=== PATIENT | male | born 1930 | race Two or more races ===

== ENCOUNTER 2017-09-26 10:50 | Inpatient (IN) | payer MEDICARE, OTHER ==
[~2017-09-26] VITALS: Ht 160 cm; Wt 72.6 kg
[~2017-09-26 10:50] MED LIST: CARVEDILOL3.125 MG ORAL; DULCOLAX10 MG RC; FOLIC ACID1 MG ORAL; LIPITOR10 MG ORAL; MIRTAZAPINE15 MG ORAL; PEPCID20 MG ORAL; PLAVIX75 MG ORAL; PREDNISOLO15 MG/5 M1 ORAL; TAMSULOSIN HCL0.4 MG ORAL; TOVIAZ4 MG PO; TRAMADOL HCL50 MG ORAL
[2017-09-26] MEDS ORDERED: ARICEPT5 MG ORAL (10:59)
[2017-09-26] MEDS ORDERED: FOSAMAX70 MG ORAL (10:59)
[2017-09-26] MEDS ORDERED: ATORVASTATIN CA10 MG ORAL (10:59)
[2017-09-26] MEDS ORDERED: MAGNESIUM OXID500 M2 PO (10:59)
[2017-09-26] MEDS ORDERED: MULTIVITAMINS1 EAC8 ORAL (11:01)
[2017-09-26] MEDS ORDERED: LATANOPROST2.5 ML BOTH EYES (11:01)
[2017-09-26] MEDS ORDERED: TOVIAZ4 MG PO (11:01)
[2017-09-26] MEDS ORDERED: MILK OF MA400 MG/51 ORAL (11:01)
[2017-09-26] MEDS ORDERED: PREDNISONE2.5 MG ORAL (11:03)
[2017-09-26] MEDS ORDERED: Sodium Chloride 500ML 500 ML IV ONE (11:09)
[2017-09-26 11:15] VITALS: BP 97/68
[2017-09-26] MEDS ORDERED: Ipratropium 0.02% Inh Soln 2.5ml UD HHN ONE (11:15)
[2017-09-26] MEDS ORDERED: Albuterol ud Inhalation HHN ONE (11:15)
[2017-09-26] MEDS ORDERED: Solu-MEDROL 125mg Inj IVP ONE (11:15)
[2017-09-26 12:08] LABS: BASOPHILS % (AUTO) 0.3 % (0.0-2.0); EOSINOPHILS % (AUTO) 0.2 % (0.0-3.0); LYMPHOCYTES % (AUTO) 9.9 % (20.0-45.0); MEAN CORPUSCULAR HEMOGLOBIN 27.1 PG (27.0-31.0); MEAN CORPUSCULAR HGB CONC 31.6 G/DL (32.0-36.0); MEAN CORPUSCULAR VOLUME 86 FL (80-99); MONOCYTES % (AUTO) 6.9 % (1.0-10.0); NEUTROPHILS % (AUTO) 82.7 % (45.0-75.0); PLATELET COUNT 247 K/UL (150-450); RED BLOOD COUNT 5.73 M/UL (4.70-6.10); RED CELL DISTRIBUTION WIDTH 14.4 % (11.6-14.8); WHITE BLOOD COUNT 15.9 K/UL (4.8-10.8)
[2017-09-26 12:09] LABS: APPEARANCE,URINE TURBID; KETONES,URINE NEGATIVE (NEGATIVE); LEUKOCYTE ESTERASE ,URINE 1+ (NEGATIVE); NITRITE,URINE NEGATIVE (NEGATIVE); PH,URINE 5 (4.5-8.0); PROTEIN,URINE 3+ (NEGATIVE); UROBILINOGEN,URINE NORMAL MG/DL (0.0-1.0)
[2017-09-26] MEDS: Ipratropium 0.02% Inh Soln 2.5ml UD HHN SCH ×3 (12:18→15:28)
[2017-09-26] MEDS: Albuterol ud Inhalation HHN SCH ×3 (12:18→15:29)
[2017-09-26 12:21] LABS: BACTERIA,URINE MANY /HPF; HYALINE CASTS, URINE 0-2 /LPF; SQUAMOUS EPITHELIAL CELL,UR FEW /LPF (NONE/OCC)
[2017-09-26 12:27] VITALS: BP 98/66
[2017-09-26 12:35] LABS: ALANINE AMINOTRANSFERASE 16 U/L (12-78); ANION GAP 11 mmol/L (5-15); ASPARTATE AMINO TRANSFERASE 14 U/L (15-37); CALCIUM 6.5 MG/DL (8.5-10.1); CARBON DIOXIDE 23 MMOL/L (21-32); CHLORIDE 110 MMOL/L (98-107); CKMB 1.4 NG/ML (0.0-3.6); SODIUM 143 MMOL/L (136-145)
[2017-09-26 12:39] LABS: ABG ALLEN TEST POSITIVE; ABG BASE EXCESS 1.1; ABG PCO2 34.1 mmHg (35.0-45.0)
[2017-09-26 12:50] LABS: ALBUMIN/GLOBULIN RATIO 0.7 (1.0-2.7); CREATININE 1.1 MG/DL (0.55-1.30); TOTAL PROTEIN 7.2 G/DL (6.4-8.2)
[2017-09-26 12:53] LABS: REFLEX LACTIC ACID YES OR NO YES
[2017-09-26] MEDS ORDERED: NS 1000ml 2,200 ML IVLG ONE (13:15)
[2017-09-26] MEDS ORDERED: Azithromycin 500 MG in NS 275 ML IV ONE (13:15)
[2017-09-26] MEDS ORDERED: Piperacillin/Tazobactam 3.375 GM in NS 55 ML IVPB ONE (13:15)
[2017-09-26] MEDS ORDERED: Azithromycin 500mg Inj IV ONE (13:46)
[2017-09-26] MEDS ORDERED: Zosyn 3.375gm inj ONE (13:47)
[2017-09-26 14:20] VITALS: BP 95/55
--- NOTE | 2017-09-26 14:22 | Emergency Room Report ---
History of Present Illness General Chief Complaint: Dyspnea/Respdistress Source: Patient, Medical Record Present Illness HPI 87-year-old male presents to ED for evaluation. Patient comes from halfway with shortness of breath and low O2 sats. Patient has history of COPD. Cough is productive with sputum with blood-tinged. Denies chest pain. Denies fevers or chills. Unable to provide any additional history at this time. No other aggravating relieving factors. Denies any other associated symptoms Allergies: Coded Allergies: No Known Allergies (Verified , 05/23/07) Patient History Past Medical History: HTN, CHF, AFib, COPD Past Surgical History: pacemaker Pertinent Family History: none Social History: Denies: smoking, alcohol use, drug use Immunizations: UTD Reviewed Nursing Documentation: PMH: Agreed, PSxH: Agreed Nursing Documentation-PMH Past Medical History: No History, Except For Hx Cardiac Problems: Yes - chf, pneumonia, CAD, angina, afib Hx Hypertension: Yes Hx Pacemaker: Yes - Left upper chest Hx COPD: Yes Review of Systems All Other Systems: limited Physical Exam Vital Signs Date Time Temp Pulse Resp B/P (MAP) Pulse Ox O2 Delivery O2 Flow Rate FiO2 09/26/17 10:45 98.1 62 18 97/68 94 Nasal Cannula 4.0 09/26/17 11:31 28 Sp02 EP Interpretation: reviewed, normal General Appearance: mild distress, other - lethargi Head: normocephalic Eyes: bilateral eye normal inspection, bilateral eye PERRL ENT: hearing grossly normal, normal pharynx, no angioedema, normal voice Neck: normal inspection Respiratory: accessory muscle use, wheezing Cardiovascular #1: regular rate, rhythm, no edema Gastrointestinal: normal inspection Rectal: deferred Genitourinary: no CVA tenderness Musculoskeletal: normal inspection Neurologic: other - lethargic Psychiatric: other - lethargic Skin: normal inspection Lymphatic: normal inspection Procedures Critical Care Time Critical Care Time i. I feel this is a highly complex case requiring extensive working including EKG/Rhythm strip, Xray/CT/US, Blood/urine lab work, repeat exams while in ED, and administration of strong opiates/narcotics for pain control, admission to hospital or close patient follow up. Total time: 30 min bedside evaluation and treatment excludes procedures (EKG). Reason for critical care: Hypoxia, respiratory distress Possible complications: hypotension, hypertension, ME, shock, arrhythmias, metabolic acidosis, end organ damage, respiratory failure. Interventions: Labs, EKG, chest x-ray, nebulizer treatment, Solu-Medrol, ABG, BiPAP, antibiotics Course: Patient brought for respiratory distress. History of COPD. Given breathing treatments. ABG shows hypoxia. Started on BiPAP. O2 sats improving. Antibiotics given Consultations: nursing staff, EMS, family Performed by: Dr Schneider Tolerated well condition = critical j. because of unstable vital signs this patient had a condition that could potentially threaten life or limb. I feel this is a critical patient who required my full attention while patient was considered critical. Total Critical Care Time excluding procedures was greater than 35 minutes Medical Decision Making Diagnostic Impression: Primary Impression: COPD (chronic obstructive pulmonary disease) Qualified Codes: J44.9 - Chronic obstructive pulmonary disease, unspecified Additional Impressions: Cardiomegaly Low O2 saturation Sepsis Qualified Codes: A41.9 - Sepsis, unspecified organism ER Course Hospital Course 87-year-old M presenting to ED with respiratory distress, hypoxia Differential diagnoses include: Pneumonia, CHF exacerbation, pneumothorax, fluid overload Clinical course Patient placed on stretcher. On secured entrance monitor with hypoxia on room air. After initial history and physical, I ordered nebulizer treatments. I ordered labs, IV fluids, EKG, chest x-ray, blood cultures, UA. Labs -leukocytosis noted, hemoglobin/hematocrit stable, electrolytes ok, lactate > 2, troponins negative EKG - NSR, no acute ischemic changes interpreted by me CXR - R lower lobe infiltrate, cardiomegaly. pacemaker Patient remains hypoxic despite nebulizer treatments. ABG shows significant hypoxia. Started on BiPAP Given 30 mL per KG fluid bolus. Given broad-spectrum antibiotics Case discussed with Dr. Forbes and he agreed to the patient to his service for further care and support I feel this is a highly complex case requiring extensive working including EKG/ Rhythm strip, Xray/CT/US, Blood/urine lab work, repeat exams while in ED, and administration of strong opiates/narcotics for pain control, admission to hospital or close patient follow up. Diagnosis - COPD, cardiomegaly, low O2 saturation, sepsis Patient admitted to ICU in critical condition Labs Test 09/26/17 11:25 09/26/17 12:30 White Blood Count 15.9 K/UL (4.8-10.8) Red Blood Count 5.73 M/UL (4.70-6.10) Hemoglobin 15.5 G/DL (14.2-18.0) Hematocrit 49.2 % (42.0-52.0) Mean Corpuscular Volume 86 FL (80-99) Mean Corpuscular Hemoglobin 27.1 PG (27.0-31.0) Mean Corpuscular Hemoglobin Concent 31.6 G/DL (32.0-36.0) Red Cell Distribution Width 14.4 % (11.6-14.8) Platelet Count 247 K/UL (150-450) Mean Platelet Volume 8.0 FL (6.5-10.1) Neutrophils (%) (Auto) 82.7 % (45.0-75.0) Lymphocytes (%) (Auto) 9.9 % (20.0-45.0) Monocytes (%) (Auto) 6.9 % (1.0-10.0) Eosinophils (%) (Auto) 0.2 % (0.0-3.0) Basophils (%) (Auto) 0.3 % (0.0-2.0) Urine Color Yellow Urine Appearance Turbid Urine pH 5 (4.5-8.0) Urine Specific [place] 1.020 (1.005-1.035) Urine Protein 3+ (NEGATIVE) Urine Glucose (UA) Negative (NEGATIVE) Urine Ketones Negative (NEGATIVE) Urine Occult Blood 1+ (NEGATIVE) Urine Nitrite Negative (NEGATIVE) Urine Bilirubin Negative (NEGATIVE) Urine Urobilinogen Normal MG/DL (0.0-1.0) Urine Leukocyte Esterase 1+ (NEGATIVE) Urine RBC 2-4 /HPF (0 - 0) Urine WBC 2-4 /HPF (0 - 0) Urine Squamous Epithelial Cells Few /LPF (NONE/OCC) Urine Bacteria Many /HPF (NONE) Urine Hyaline Casts 0-2 /LPF (NONE) Sodium Level 143 MMOL/L (136-145) Potassium Level 4.0 MMOL/L (3.5-5.1) Chloride Level 110 MMOL/L (98-107) Carbon Dioxide Level 23 MMOL/L (21-32) Anion Gap 11 mmol/L (5-15) Blood Urea Nitrogen 2 mg/dL (7-18) Creatinine 1.1 MG/DL (0.55-1.30) Estimat Glomerular Filtration Rate mL/min (>60) Glucose Level 147 MG/DL (74-106) Lactic Acid Level 2.50 mmol/L (0.66-2.22) Calcium Level 6.5 MG/DL (8.5-10.1) Total Bilirubin 0.6 MG/DL (0.2-1.0) Aspartate Amino Transf (AST/SGOT) 14 U/L (15-37) Alanine Aminotransferase (ALT/SGPT) 16 U/L (12-78) Alkaline Phosphatase 61 U/L (46-116) Total Creatine Kinase 44 U/L (26-308) Creatine Kinase MB 1.4 NG/ML (0.0-3.6) Creatine Kinase MB Relative Index 3.1 Troponin I 0.006 ng/mL (0.000-0.056) Pro-B-Type Natriuretic Peptide 517 pg/mL (0-125) Total Protein 7.2 G/DL (6.4-8.2) Albumin 2.9 G/DL (3.4-5.0) Globulin 4.3 g/dL Albumin/Globulin Ratio 0.7 (1.0-2.7) Arterial Blood pH 7.460 (7.350-7.450) Arterial Blood Partial Pressure CO2 34.1 mmHg (35.0-45.0) Arterial Blood Partial Pressure O2 46.0 mmHg (75.0-100.0) Arterial Blood HCO3 24.2 mmol/L (22.0-26.0) Arterial Blood Oxygen Saturation 81.4 % (92.0-98.0) Arterial Blood Base Excess 1.1 Gene Test Positive EKG Diagnostic Results Rate: normal Rhythm: NSR ST Segments: no acute changes ASA given to the pt in ED: No Rhythm Strip Diag. Results EP Interpretation: yes Rhythm: NSR, no PVC's, no ectopy Chest X-Ray Diagnostic Results Chest X-Ray Diagnostic Results : Chest X-Ray Ordered: Yes # of Views/Limited/Complete: 1 View Indication: Shortness of Breath EP Interpretation: Yes Interpretation: no pneumothorax, other - R atelectasis/infiltrate Impression: Other - pneumonia/CHF Electronically Signed by: Electronically signed by Skinny Schneider MD Last Vital Signs Date Time Temp Pulse Resp B/P (MAP) Pulse Ox O2 Delivery O2 Flow Rate FiO2 09/26/17 13:05 98 26 91 Facial 100 09/26/17 12:36 2.0 09/26/17 12:27 98.1 98/66 Status: improved Disposition: ADMITTED INPATIENT Condition: Critical Referrals: Dre Forbes MD (PCP) SKINNY SCHNEIDER M.D. Sep 26, 2017 14:22
--- NOTE | 2017-09-26 17:13 | Consultation ---
Consult Note Consult Note [facility] DICT # [id number] LEANNE DOLAN M.D. Sep 26, 2017 17:13
[2017-09-26] MEDS ORDERED: Albuterol/Ipratropium 3ml neb HHN PRN (17:15)
[2017-09-26 17:16] VITALS: BP 102/50
--- NOTE | 2017-09-26 17:24 | Diagnostic Imaging Report ---
Indication: Reason For Exam: SOB Technique: One view of the chest Comparison: 04/29/2016 Findings: There is considerable opacity at the right lung base, likely combination of atelectasis, infiltrate, and pleural fluid. There is a smaller left-sided pleural effusion. There is generalized mild interstitial congestion. There is a left chest pacemaker and median sternotomy sutures. The heart is mildly enlarged. Impression: Right basilar atelectasis, infiltrate, and likely pleural fluid Generalized interstitial congestion Smaller left pleural effusion
[2017-09-26 18:25] VITALS: BP 138/95
--- NOTE | 2017-09-26 19:24 | History & Physical ---
History and Physical History & Physicial Dictated for Int Med-Dr Forbes no. [id number]. PRAVEEN MEHTA Sep 26, 2017 19:24
--- NOTE | 2017-09-26 19:30 | Consultation ---
DATE OF CONSULTATION: 09/26/2017 PULMONARY CONSULTATION CONSULTING PHYSICIAN: Marcos Shore M.D. REFERRING PHYSICIAN: Der Forbes M.D. REASON FOR CONSULTATION: Respiratory failure. HISTORY OF PRESENT ILLNESS: The patient is an 87-year-old male, last seen by me in 04/2016 at [facility] when he was admitted with an acute exacerbation of his underlying ILD versus COPD. 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 There was question about hemoptysis. He has been afebrile initially on 4 L of O2, but based on pO2 of 46 on his blood gas, he was placed on BiPAP. The patient is coughing and wheezing. At the time of my interview, he is on BiPAP. He is lethargic and he is not providing much of the history, but he denies any distress. He states that he is short of breath and has been coughing. PAST MEDICAL HISTORY: 1. COPD. 2. Interstitial lung disease dating back to at least 2006 radiographically, it is not a typical UIP-like pattern. 3. History of DVT in the past, no longer on anticoagulation. 4. CAD, status post CABG and PCI. 5. Paroxysmal AFib, status post pacemaker. 6. Prior CVA. 7. Hyperlipidemia. 8. Anxiety. 9. Depression. PAST SURGICAL HISTORY: Pacemaker placement. ALLERGIES: No known drug allergies. MEDICATIONS: Prior medication list from the assisted: Fosamax, Lipitor, Dulcolax, Coreg, Plavix, Aricept, Pepcid, Toviaz, folic acid, Xalatan, milk of magnesia, Mag-Ox, Remeron, multivitamin, prednisone 5 mg daily, tamsulosin, and tramadol. SOCIAL HISTORY: He is a former smoker. No known drug or alcohol use. . FAMILY HISTORY: Noncontributory. REVIEW OF SYSTEMS: Unobtainable. PHYSICAL EXAMINATION: VITAL SIGNS: Temperature 98.1, heart rate 98, respiratory rate 20, blood pressure 95/66, and saturating 94% on BiPAP 15/5. GENERAL: This is an elderly male, in no acute distress with BiPAP on. HEENT: Normocephalic, atraumatic. Oropharynx is clear. Moist mucous membranes. NECK: Supple without lymphadenopathy. CHEST: Distant, scattered, coarse with end-expiratory wheezing. HEART: Regular rate and rhythm. ABDOMEN: Soft, nontender, nondistended. EXTREMITIES: No cyanosis, clubbing, or edema. ANCILLARY DATA: White count 15.9, hemoglobin 15.5, and platelet count 247,000. ABG, 7.46/34/46/24/81. Chemistry, sodium 142, potassium 4.0, chloride 110, bicarbonate 23, BUN 2, creatinine 1.1, glucose 147. Lactic acid 2.5. Calcium 6.5. Total bilirubin 0.6, AST 14, ALT 16, alkaline phosphatase 61. CK 44, CK-MB 1.4, troponin 0.006, BNP 517. Total protein 7.2, albumin 2.9, globulin 4.3. Urinalysis, 3+ protein, 1+ blood, 1+ leukocyte esterase, 2-4 red blood cells, many bacteria. Imaging, chest x-ray reviewed by myself shows bilateral interstitial disease, no significant change from prior, subsegmental atelectasis, there is no infiltrate per se. He had CT angio from 09/13/2015, at [facility] that shows interstitial changes, not typical UIP-like pattern, some subpleural fibrosis, interlobular septal thickening, patchy ground-glass opacities, and scattered bronchiectasis. Echo from 09/29/2015, shows severely depressed LV systolic function, EF 35%, LV diastolic function indeterminate, wall motion 2.41, mildly depressed RV systolic function, moderate aortic root dilation, no evidence of vegetations, CVP. ASSESSMENT: The patient is an 87-year-old Citizen Of [place] male with history of underlying interstitial lung disease, chronic obstructive pulmonary disease, coronary artery disease, status post coronary artery bypass graft, percutaneous coronary intervention, paroxysmal atrial fibrillation, status post pacemaker, congestive heart failure, prior deep venous thrombosis, no longer on anticoagulant, cerebrovascular accident, hypertension, and chronic kidney disease, presenting with shortness of breath, cough, and hypoxemia likely secondary to an exacerbation of his underlying obstructive lung disease or interstitial lung disease. There is no clear infiltrate on chest x-ray, but given his lactic acidosis and leukocytosis, it is reasonable to treat him for healthcare-associated organisms. PROBLEM LIST: 1. Acute hypoxemic respiratory failure, likely secondary to exacerbation of his underlying interstitial lung disease and chronic obstructive pulmonary disease in the setting of recent respiratory infection. 2. Underlying interstitial lung disease (not typical usual interstitial pneumonia-like pattern, questionable chronic hypersensitivity pneumonitis versus nonspecific interstitial pneumonia). 3. Leukocytosis and lactic acidosis. 4. Possible healthcare-associated pneumonia. 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 6. Chronic obstructive pulmonary disease. 7. Coronary artery disease, status post coronary artery bypass graft and percutaneous coronary intervention. 8. Congestive heart failure. 9. Paroxysmal atrial fibrillation, status post pacemaker. 10. Prior deep venous thrombosis, no longer on anticoagulation. 11. History of cerebrovascular accident. 12. Hypertension. 13. Chronic kidney disease. TREATMENT PLAN: 1. Optimize pulmonary hygiene/mobilize as tolerated. 2. Ttevb-ahu-rkptv and p.r.n. bronchodilators. 3. Solu-Medrol 60 IV b.i.d., we will taper based on clinical response. 4. Zosyn (day #1). 5. Follow up sputum culture and respiratory panel. 6. Follow up CT scan of the chest. 7. Monitor volumes, p.r.n. diuresis. 8. N.p.o. until better. 9. Swallow evaluation. 10. Change BiPAP to 12/5 nightly and p.r.n. 11. Titrate down FiO2 to keep saturations greater than 90%. 12. DVT prophylaxis, heparin subcutaneous. 13. The patient is full code. Dr. Forbes, thank you for allowing me to assist in the care of your patient. If I may be of any assistance in the future, please do not hesitate to ask. Magdiel Girard JOB#: [id number] CC:
[2017-09-26] MEDS: Albuterol/Ipratropium 3ml neb HHN SCH (20:23)
[2017-09-26] MEDS ORDERED: Pneumococcal Vaccine 25mcg/0.5ml IM ONE (21:00)
[2017-09-26] MEDS: Solu-MEDROL 125mg Inj IVP SCH (22:19)
[2017-09-26] MEDS: Piperacillin/Tazobactam 3.375 GM in D5W 55 ML IVPB SCH (22:19)
[2017-09-26] MEDS: Heparin 5000 units/ml inj SUBQ SCH (22:20)
[2017-09-26] MEDS ORDERED: traMADol 50mg tab ORAL PRN (23:30)
[2017-09-27] VITALS: BP 93/63
--- NOTE | 2017-09-27 01:02 | History and Physical Report ---
DATE OF ADMISSION: 09/26/2017 CHIEF COMPLAINT: The patient is an 87-year-old male who presents with chief complaint of shortness of breath and low oxygen saturation. HISTORY OF PRESENT ILLNESS: The patient is a resident of [facility]. According to staff at [facility], the patient became increasingly short of breath over the last couple of days. The patient has also had a cough. Cough is productive of yellowish sputum. The patient presented to [place] emergency room. The patient is admitted for shortness of breath and probable chronic obstructive pulmonary disease, acute exacerbation. PAST MEDICAL HISTORY: Significant for, 1. Chronic obstructive pulmonary disease. 2. Congestive heart failure. 3. Coronary artery disease. 4. Hypertension. 5. Atrial fibrillation. 6. Alzheimer's dementia. 7. Osteoporosis. 8. Chronic renal failure. PAST SURGICAL HISTORY: Unknown. CURRENT MEDICATIONS: 1. Plavix 75 mg p.o. daily. 2. Multivitamin p.o. daily. 3. Toviaz 4 mg p.o. daily. 4. Xalatan one drop to both eyes at bedtime. 5. Trusopt 2% two drops to both eyes at bedtime. 6. Pepcid 20 mg p.o. daily. 7. Prednisone 5 mg p.o. daily. 8. DuoNeb nebulized q.4 h. p.r.n. 9. Avodart 0.5 mg p.o. daily. 10. Carvedilol 3.125 mg p.o. twice daily. 11. Calcium carbonate 500 mg p.o. daily. 12. Vitamin D3 1000 units p.o. daily. 13. Aspirin 81 mg p.o. daily. 14. Remeron 15 mg p.o. at bedtime. 15. Tramadol 50 mg p.o. q.6 h. p.r.n. 16. Lasix 20 mg p.o. daily. 17. Flomax 0.4 mg p.o. daily. 18. Namenda XR 14 mg p.o. daily. ALLERGIES: No known drug allergies. SOCIAL HISTORY: The patient is resident of [facility]. REVIEW OF SYSTEMS: Unable to assess secondary to the patient's mental status. PHYSICAL EXAMINATION: VITAL SIGNS: Temperature 98.1 degrees, respirations 26, blood pressure 95/55, pulse 98, and oxygen saturation on non-rebreather is 94%. HEENT: Eyes, pupils equal and responsive to light and accommodation. Extraocular movements are intact. NECK: Supple. No lymphadenopathy. CHEST: Lungs have crackles with bilateral rales and expiratory wheezing. CARDIOVASCULAR: Regular rhythm and rate. S1 and S2 normal without murmurs, rubs, or gallops. ABDOMEN: Soft, nontender, and nondistended. Positive bowel sounds. No evidence of hepatosplenomegaly. Currently, no rebound or guarding noted. EXTREMITIES: Negative for clubbing, cyanosis, or edema. RECTAL/GENITAL: Refused. NEUROLOGIC: Cranial nerves II through XII are grossly intact without focal deficits. Motor strength is 5/5 bilaterally. Deep tendon reflexes are 2+ plantar. LABORATORY STUDIES: WBC 15.9, hemoglobin 15.5, hematocrit 49.2 and platelets 247,000. Sodium 143, potassium 4.0, chloride 110, CO2 23, BUN 2, creatinine 1.1, and glucose 147. Lactic acid elevated at 2.50. Troponin 0.006. Chest x-ray revealed right basilar atelectasis consistent with infiltrate. ASSESSMENT: This is an 87-year-old white male, 1. Right pneumonia. 2. Hemoptysis. 3. Shortness of breath. 4. Chronic obstructive pulmonary disease. 5. Hypoxia. 6. Congestive heart failure. 7. Coronary artery disease. 8. Hypertension. 9. Atrial fibrillation. 10. Alzheimer's dementia. 11. Osteoporosis. 12. Chronic renal failure. TREATMENT: 1. Pneumonia/hemoptysis/shortness of breath. A Pulmonary consultation is pending with Dr. Shore. The patient has been placed empirically on Zosyn. The patient has also been started on intravenous Solu-Medrol, may be secondary to chronic obstructive pulmonary disease, acute exacerbation. The patient is currently tolerating a non-rebreather. 2. Chronic obstructive pulmonary disease. See pneumonia above. 3. Hypoxia. This is probably secondary to pneumonia and chronic obstructive pulmonary disease as above. 4. Congestive heart failure. Continue Coreg as above. 5. Coronary artery disease. Continue aspirin and Plavix as above. 6. Hypertension. The patient is currently on Coreg. Continue Coreg as above. 7. Atrial fibrillation. A Cardiology consultation is pending with Dr. Sher Sloan. 8. Alzheimer's dementia. Continue Namenda as above. 9. Osteoporosis. 10. Chronic renal failure. Ryan Hagen M.D. DR: KRISTOPHER JOB#: [id number] CC:
[2017-09-27] MEDS: Albuterol/Ipratropium 3ml neb HHN SCH ×4 (01:20→20:56)
[2017-09-27 04:00] VITALS: BP 127/89
[2017-09-27 06:01] LABS: MEAN CORPUSCULAR HEMOGLOBIN 26.8 PG (27.0-31.0); MEAN CORPUSCULAR HGB CONC 31.5 G/DL (32.0-36.0); MEAN CORPUSCULAR VOLUME 85 FL (80-99); MEAN PLATELET VOLUME 8.1 FL (6.5-10.1); PLATELET COUNT 200 K/UL (150-450); RED BLOOD COUNT 5.55 M/UL (4.70-6.10); RED CELL DISTRIBUTION WIDTH 14.2 % (11.6-14.8); WHITE BLOOD COUNT 14.7 K/UL (4.8-10.8)
[2017-09-27] MEDS: Piperacillin/Tazobactam 3.375 GM in D5W 55 ML IVPB SCH ×3 (06:17→22:27)
[2017-09-27] MEDS: NovoLOG Insulin Flexpen SUBQ SCH ×4 (06:18→20:48)
[2017-09-27 06:36] LABS: MAGNESIUM 2.1 MG/DL (1.8-2.4); PHOSPHORUS 4.2 MG/DL (2.5-4.9)
[2017-09-27 07:47] LABS: ANION GAP 12 mmol/L (5-15); CALCIUM 9.8 MG/DL (8.5-10.1); CARBON DIOXIDE 22 MMOL/L (21-32); CHLORIDE 111 MMOL/L (98-107); CREATININE 1.3 MG/DL (0.55-1.30); SODIUM 145 MMOL/L (136-145)
[2017-09-27 08:00] VITALS: BP 105/67
[2017-09-27] MEDS: Donepezil 5mg Tab ORAL SCH (09:16)
[2017-09-27] MEDS: Solu-MEDROL 125mg Inj IVP SCH ×2 (09:16→20:47)
[2017-09-27] MEDS: Heparin 5000 units/ml inj SUBQ SCH ×2 (09:18→20:48)
[2017-09-27] MEDS: Milk of Magnesia 30ml Ud ORAL SCH (09:25)
[2017-09-27] MEDS ORDERED: Pneumococcal Vaccine 25mcg/0.5ml IM ONE (11:30)
[2017-09-27 12:00] VITALS: BP 126/79
--- NOTE | 2017-09-27 12:07 | Pulmonology Progress Note ---
Assessment/Plan Problems: (1) COPD (chronic obstructive pulmonary disease) (2) Cardiomegaly (3) Pleural effusion (4) Low O2 saturation Assessment/Plan ASSESSMENT: The patient is an 87-year-old [place]ian male with history of underlying interstitial lung disease, chronic obstructive pulmonary disease, coronary artery disease, status post coronary artery bypass graft, percutaneous coronary intervention, paroxysmal atrial fibrillation, status post pacemaker, congestive heart failure, prior deep venous thrombosis, no longer on anticoagulant, cerebrovascular accident, hypertension, and chronic kidney disease, presenting with shortness of breath, cough, and hypoxemia likely secondary to an exacerbation of his underlying obstructive lung disease or interstitial lung disease. There is no clear infiltrate on chest x-ray, but given his lactic acidosis and leukocytosis, it is reasonable to treat him for healthcare-associated organisms. PROBLEM LIST: 1. Acute hypoxemic respiratory failure, likely secondary to exacerbation of his underlying interstitial lung disease and chronic obstructive pulmonary disease in the setting of recent respiratory infection. 2. Underlying interstitial lung disease (not typical usual interstitial pneumonia-like pattern, questionable chronic hypersensitivity pneumonitis versus nonspecific interstitial pneumonia). 3. Leukocytosis and lactic acidosis. 4. Possible healthcare-associated pneumonia. 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 6. Chronic obstructive pulmonary disease. 7. Coronary artery disease, status post coronary artery bypass graft and percutaneous coronary intervention. 8. Congestive heart failure. 9. Paroxysmal atrial fibrillation, status post pacemaker. 10. Prior deep venous thrombosis, no longer on anticoagulation. 11. History of cerebrovascular accident. 12. Hypertension. 13. Chronic kidney disease. TREATMENT PLAN: 1. Optimize pulmonary hygiene/mobilize as tolerated. 2. [id number] and p.r.n. bronchodilators. 3. Solu-Medrol 60 IV b.i.d., we will taper based on clinical response. 4. Zosyn (day #2). 5. Follow up sputum culture and respiratory panel. 6. Follow up CT scan of the chest. 7. Monitor volumes, p.r.n. diuresis - will give lasix 20 IV 2 1 now 8. Cardiology evaluation 9. Diet per [employer] with STRICT aspiration precautions 10. Change BiPAP to 12/5 nightly and p.r.n - CHECK ABG now 11. Titrate down FiO2 to keep saturations greater than 90%. 12. DVT prophylaxis, heparin subcutaneous. 13. The patient is full code. Subjective Allergies: Coded Allergies: No Known Allergies (Verified , 05/23/07) Subjective AFVSS, on NRBFM, no cough, + SOB, no F/C Objective Last 24 Hour Vital Signs Date Time Temp Pulse Resp B/P (MAP) Pulse Ox O2 Delivery O2 Flow Rate FiO2 09/27/17 09:16 60 105/67 09/27/17 08:00 97.8 60 21 105/67 92 Non-Rebreather 15.0 100 09/27/17 08:00 63 09/27/17 07:40 61 17 89 Venturi Mask 14.0 55 09/27/17 07:31 Non-Rebreather 15.0 100 09/27/17 07:31 95 20 93 Non-Rebreather 15.0 100 09/27/17 07:31 35 09/27/17 04:00 61 09/27/17 04:00 97.7 70 24 127/89 93 Non-Rebreather 15.0 09/27/17 01:20 63 20 91 Non-Rebreather 80 09/27/17 01:15 60 22 91 Non-Rebreather 15.0 80 09/27/17 01:15 35 09/27/17 00:00 97.2 62 20 93/63 94 Non-Rebreather 15.0 09/27/17 00:00 90 09/26/17 20:00 73 09/26/17 19:08 102 28 94 Non-Rebreather 80 09/26/17 19:03 35 09/26/17 19:03 103 28 92 Non-Rebreather 15.0 80 09/26/17 19:00 Non-Rebreather 15.0 100 09/26/17 19:00 77 18 93 09/26/17 18:25 98.1 95 22 138/95 91 Non-Rebreather 15.0 09/26/17 17:43 98.1 98 19 102/50 89 Venturi Mask 2.0 55 09/26/17 17:16 98.1 98 19 102/50 89 Venturi Mask 2.0 55 09/26/17 14:58 91 21 96 Facial 100 09/26/17 14:20 98.1 98 26 95/55 94 2.0 100 09/26/17 13:05 98 26 91 Facial 100 09/26/17 12:36 102 14 Non-Rebreather 2.0 100 09/26/17 12:27 98.1 102 14 98/66 87 Non-Rebreather 100 Intake and Output 09/26/17 09/27/17 19:00 07:00 Intake Total 500 ml 55.00 ml Balance 500 ml 55.00 ml Intake IV Total 55.00 ml Other 500 ml # Voids 51 1 # Bowel Movements 1 2 General Appearance: no acute distress, cachetic HEENT: normocephalic, atraumatic, mucous membranes moist Respiratory/Chest: lungs clear - but distant Cardiovascular: normal peripheral pulses, normal rate, regular rhythm Abdomen: normal bowel sounds, soft, non tender, no organomegaly, non distended Extremities: no cyanosis, no clubbing, no edema Microbiology Date/Time Source Procedure Growth Status 09/26/17 11:25 Blood Blood Culture - Preliminary Resulted 09/26/17 11:25 Blood Blood Culture - Preliminary Resulted 09/26/17 11:25 Urine,Clean Catch Urine Culture - Preliminary Resulted Laboratory Tests 09/26/17 12:30: Arterial Blood pH 7.460H, Arterial Blood Partial Pressure CO2 34.1L, Arterial Blood Partial Pressure O2 46.0*L, Arterial Blood HCO3 24.2, Arterial Blood Oxygen Saturation 81.4L, Arterial Blood Base Excess 1.1, Gene Test Positive 09/27/17 04:55: White Blood Count 14.7H, Red Blood Count 5.55, Hemoglobin 14.9, Hematocrit 47.2 , Mean Corpuscular Volume 85, Mean Corpuscular Hemoglobin 26.8L, Mean Corpuscular Hemoglobin Concent 31.5L, Red Cell Distribution Width 14.2, Platelet Count 200, Mean Platelet Volume 8.1, Neutrophils (%) (Auto) , Lymphocytes (%) (Auto) , Monocytes (%) (Auto) , Eosinophils (%) (Auto) , Basophils (%) (Auto) , Sodium Level 145, Potassium Level 4.0, Chloride Level 111H, Carbon Dioxide Level 22, Anion Gap 12, Blood Urea Nitrogen 29H, Creatinine 1.3, Estimat Glomerular Filtration Rate , Glucose Level 146H, Calcium Level 9.8#, Phosphorus Level 4.2, Magnesium Level 2.1, Troponin I 0.017 , Pro-B-Type Natriuretic Peptide 697H, Influenza Virus Type A IgM Antibody [ Pending], Influenza Virus Type B IgM Antibody [Pending] Current Medications Medications (Trade) Dose Ordered Sig/Terrence Route PRN Reason Start Time Stop Time Status Last Admin Dose Admin Albuterol/ Ipratropium (Albuterol/ Ipratropium) 3 ml Q4H PRN HHN Shortness of Breath 09/26/17 17:15 10/01/17 17:14 Albuterol/ Ipratropium (Albuterol/ Ipratropium) 3 ml Q6HRT HHN 09/26/17 19:00 10/01/17 18:59 09/27/17 07:30 Atorvastatin Calcium (Lipitor) 10 mg BEDTIME ORAL 09/27/17 21:00 10/27/17 20:59 Bisacodyl (Dulcolax) 10 mg PRN PRN RECTAL Constipation 09/26/17 23:30 10/26/17 23:29 Carvedilol (Coreg) 3.125 mg TWICE A DAY ORAL 09/27/17 09:00 10/27/17 08:59 09/27/17 09:16 Clopidogrel Bisulfate (Plavix) 75 mg DAILY ORAL 09/27/17 09:00 10/27/17 08:59 09/27/17 09:16 Dextrose (Dextrose 50%) STAT PRN IV Hypoglycemia 09/26/17 23:30 10/26/17 23:29 Donepezil HCl (Aricept) 5 mg DAILY ORAL 09/27/17 09:00 10/27/17 08:59 09/27/17 09:16 Folic Acid (Folate) 1 mg DAILY ORAL 09/27/17 09:00 10/27/17 08:59 09/27/17 09:16 Heparin Sodium (Porcine) (Heparin 5000 units/ml) 5,000 units EVERY 12 HOURS SUBQ 09/26/17 21:00 10/26/17 20:59 09/27/17 09:18 Insulin Aspart (NovoLOG) BEFORE MEALS AND HS SUBQ 09/27/17 06:30 10/27/17 06:29 Latanoprost (Xalatan) 1 drop BEDTIME BOTH EYES 09/27/17 21:00 10/27/17 20:59 Magnesium Hydroxide (Mom) 30 ml DAILY ORAL 09/27/17 09:00 10/27/17 08:59 09/27/17 09:25 Methylprednisolone Sodium Succinate (Solu-MEDROL) 60 mg EVERY 12 HOURS IVP 09/26/17 21:00 10/26/17 20:59 09/27/17 09:16 Mirtazapine (Remeron) 7.5 mg BEDTIME ORAL 09/27/17 21:00 10/27/17 20:59 Piperacillin Sod/ Tazobactam Sod 3.375 gm/Dextrose 55 ml @ 13.75 mls/ hr EVERY 8 HOURS IVPB 09/26/17 22:00 10/01/17 21:59 09/27/17 06:17 Tamsulosin HCl (Flomax) 0.4 mg BEDTIME ORAL 09/27/17 21:00 10/27/17 20:59 Tramadol HCl (Ultram) 50 mg EVERY 8 HOURS PRN ORAL For Pain 09/26/17 23:30 10/03/17 23:29 LEANNE DOLAN M.D. Sep 27, 2017 12:07
[2017-09-27 12:26] LABS: ABG ALLEN TEST POSITIVE; ABG BASE EXCESS -0.7; ABG PCO2 37.1 mmHg (35.0-45.0)
--- NOTE | 2017-09-27 15:50 | Diagnostic Imaging Report ---
Clinical Indication: Shortness of breath Technique: Spiral acquisitions obtained through the chest. No IV contrast utilized, reason not stated. Multiplanar reconstructions generated. Total dose length product 804.97 mGycm. CTDIvol(s) 22.06 mGy. Dose reduction achieved using automated exposure control Comparison: Reference made to chest radiograph 09/26/2017 Findings: There is dense consolidation of most of the right lower lobe. There is also a component of volume loss as well, with marked elevation of the right hemidiaphragm. There is less extensive consolidation and atelectasis of portions of the left lower lobe. Bilaterally, there is centrilobular interstitial septal thickening. There are associated areas of groundglass opacity There are bilateral subpleural blebs and honeycombing. No pleural fluid demonstrated. No definite masses or nodules. The heart is enlarged. There is a small amount of pericardial fluid posteriorly. There are pacemaker wires within the heart. The ascending thoracic aorta is ectatic but not quite aneurysmal, measuring 4.5 cm in diameter. The right main pulmonary artery is dilated, measuring 3 cm in diameter no mediastinal or hilar mass or adenopathy. Esophagus is grossly unremarkable. No axillary or chest wall mass or adenopathy. There are median sternotomy sutures. The included portions of the thyroid are unremarkable. The included upper abdominal anatomy is remarkable for the presence of colonic diverticulosis. There is a large gallstone within the gallbladder lumen. There is a large right upper pole renal cyst. There are degenerative changes of the thoracic spine Impression: Dense consolidation of most the right lower lobe, less extensive dense consolidation of portions of the left lower lobe. Nonspecific but likely representing infiltrates secondary to pneumonia. Pulmonary edema also a possibility Markedly elevated right hemidiaphragm. This accounts for much of the basilar opacity seen on recent chest radiograph Interstitial septal thickening and pulmonary parenchymal groundglass opacity. This is nonspecific with a large differential. However, presence of subpleural honeycombing suggests a likely component of chronic interstitial fibrosis. Dilated right main pulmonary artery, consistent with pulmonary arterial hypertension Cardiomegaly Small pericardial effusion Ectatic but not quite aneurysmal ascending thoracic aorta Postsurgical changes described, including pacemaker, evidence of prior median sternotomy Cholelithiasis Colonic diverticulosis Incidental findings of are multiple bilateral renal cysts, degenerative spondylosis The CT scanner at [facility] is accredited by the [employer] and the scans are performed using protocols designed to limit radiation exposure to as low as reasonably achievable to attain images of sufficient resolution adequate for diagnostic evaluation.
[2017-09-27 16:00] VITALS: BP 95/65
--- NOTE | 2017-09-27 17:02 | Cardiology Report ---
APPROVED REPORT EKG Measurement Heart [id number] Sinus rhythm with 1st degree AV block Left axis deviation Possible Lateral infarct, age undetermined Abnormal ECG
--- NOTE | 2017-09-27 19:55 | Infectious Diseases Prog Note ---
Assessment/Plan Assessment/Plan Full consult dictated: A) 1) gram + bacteremia, pna, ? influenza, ? uti, sepsis, leukocytosis 2) pmh noted 3) allergies negative P) 1) vancomycin and zosyn 2) check cultures and chest x-ray 3) thank you Subjective Allergies: Coded Allergies: No Known Allergies (Verified , 05/23/07) Objective Vital Signs Last 24 Hour Vital Signs Date Time Temp Pulse Resp B/P (MAP) Pulse Ox O2 Delivery O2 Flow Rate FiO2 09/27/17 18:00 64 95/65 09/27/17 16:00 64 09/27/17 16:00 97.7 67 21 95/65 90 Non-Rebreather 15.0 100 09/27/17 13:22 62 17 90 Non-Rebreather 14.0 55 09/27/17 13:12 92 18 94 Non-Rebreather 15.0 100 09/27/17 13:12 35 09/27/17 12:56 62 09/27/17 12:00 97.7 78 22 126/79 93 Non-Rebreather 15.0 100 09/27/17 09:16 60 105/67 09/27/17 08:00 97.8 60 21 105/67 92 Non-Rebreather 15.0 100 09/27/17 08:00 63 09/27/17 07:40 61 17 89 Venturi Mask 14.0 55 09/27/17 07:31 Non-Rebreather 15.0 100 09/27/17 07:31 95 20 93 Non-Rebreather 15.0 100 09/27/17 07:31 35 09/27/17 04:00 61 09/27/17 04:00 97.7 70 24 127/89 93 Non-Rebreather 15.0 09/27/17 01:20 63 20 91 Non-Rebreather 80 09/27/17 01:15 60 22 91 Non-Rebreather 15.0 80 09/27/17 01:15 35 09/27/17 00:00 97.2 62 20 93/63 94 Non-Rebreather 15.0 09/27/17 00:00 90 09/26/17 20:00 73 Height (Feet): 5 Height (Inches): 3.00 Weight (Pounds): 160 Microbiology Date/Time Source Procedure Growth Status 09/26/17 11:25 Blood Blood Culture - Preliminary Resulted 09/26/17 11:25 Blood Blood Culture - Preliminary Resulted 09/26/17 11:25 Urine,Clean Catch Urine Culture - Preliminary Resulted Laboratory Tests Test 09/27/17 04:55 09/27/17 12:16 White Blood Count 14.7 K/UL (4.8-10.8) H Red Blood Count 5.55 M/UL (4.70-6.10) Hemoglobin 14.9 G/DL (14.2-18.0) Hematocrit 47.2 % (42.0-52.0) Mean Corpuscular Volume 85 FL (80-99) Mean Corpuscular Hemoglobin 26.8 PG (27.0-31.0) L Mean Corpuscular Hemoglobin Concent 31.5 G/DL (32.0-36.0) L Red Cell Distribution Width 14.2 % (11.6-14.8) Platelet Count 200 K/UL (150-450) Mean Platelet Volume 8.1 FL (6.5-10.1) Neutrophils (%) (Auto) % (45.0-75.0) Lymphocytes (%) (Auto) % (20.0-45.0) Monocytes (%) (Auto) % (1.0-10.0) Eosinophils (%) (Auto) % (0.0-3.0) Basophils (%) (Auto) % (0.0-2.0) Sodium Level 145 MMOL/L (136-145) Potassium Level 4.0 MMOL/L (3.5-5.1) Chloride Level 111 MMOL/L (98-107) H Carbon Dioxide Level 22 MMOL/L (21-32) Anion Gap 12 mmol/L (5-15) Blood Urea Nitrogen 29 mg/dL (7-18) H Creatinine 1.3 MG/DL (0.55-1.30) Estimat Glomerular Filtration Rate mL/min (>60) Glucose Level 146 MG/DL (74-106) H Calcium Level 9.8 MG/DL (8.5-10.1) # Phosphorus Level 4.2 MG/DL (2.5-4.9) Magnesium Level 2.1 MG/DL (1.8-2.4) Troponin I 0.017 ng/mL (0.000-0.056) Pro-B-Type Natriuretic Peptide 697 pg/mL (0-125) H Influenza Virus Type A IgM Antibody Pending Influenza Virus Type B IgM Antibody Pending Arterial Blood pH 7.419 (7.350-7.450) Arterial Blood Partial Pressure CO2 37.1 mmHg (35.0-45.0) Arterial Blood Partial Pressure O2 71.2 mmHg (75.0-100.0) L Arterial Blood HCO3 23.4 mmol/L (22.0-26.0) Arterial Blood Oxygen Saturation 93.3 % (92.0-98.0) Arterial Blood Base Excess -0.7 Gene Test Positive Current Medications Medications (Trade) Dose Ordered Sig/Terrence Route PRN Reason Start Time Stop Time Status Last Admin Dose Admin Albuterol/ Ipratropium (Albuterol/ Ipratropium) 3 ml Q4H PRN HHN Shortness of Breath 09/26/17 17:15 10/01/17 17:14 Albuterol/ Ipratropium (Albuterol/ Ipratropium) 3 ml Q6HRT HHN 09/26/17 19:00 10/01/17 18:59 09/27/17 13:12 Atorvastatin Calcium (Lipitor) 10 mg BEDTIME ORAL 09/27/17 21:00 10/27/17 20:59 Bisacodyl (Dulcolax) 10 mg PRN PRN RECTAL Constipation 09/26/17 23:30 10/26/17 23:29 Carvedilol (Coreg) 3.125 mg TWICE A DAY ORAL 09/27/17 09:00 10/27/17 08:59 09/27/17 09:16 Clopidogrel Bisulfate (Plavix) 75 mg DAILY ORAL 09/27/17 09:00 10/27/17 08:59 09/27/17 09:16 Dextrose (Dextrose 50%) STAT PRN IV Hypoglycemia 09/26/17 23:30 10/26/17 23:29 Donepezil HCl (Aricept) 5 mg DAILY ORAL 09/27/17 09:00 10/27/17 08:59 09/27/17 09:16 Folic Acid (Folate) 1 mg DAILY ORAL 09/27/17 09:00 10/27/17 08:59 09/27/17 09:16 Heparin Sodium (Porcine) (Heparin 5000 units/ml) 5,000 units EVERY 12 HOURS SUBQ 09/26/17 21:00 10/26/17 20:59 09/27/17 09:18 Insulin Aspart (NovoLOG) BEFORE MEALS AND HS SUBQ 09/27/17 06:30 10/27/17 06:29 Latanoprost (Xalatan) 1 drop BEDTIME BOTH EYES 09/27/17 21:00 10/27/17 20:59 Magnesium Hydroxide (Mom) 30 ml DAILY ORAL 09/27/17 09:00 10/27/17 08:59 09/27/17 09:25 Methylprednisolone Sodium Succinate (Solu-MEDROL) 60 mg EVERY 12 HOURS IVP 09/26/17 21:00 10/26/17 20:59 09/27/17 09:16 Mirtazapine (Remeron) 7.5 mg BEDTIME ORAL 09/27/17 21:00 10/27/17 20:59 Piperacillin Sod/ Tazobactam Sod 3.375 gm/Dextrose 55 ml @ 13.75 mls/ hr EVERY 8 HOURS IVPB 09/26/17 22:00 10/01/17 21:59 09/27/17 14:58 Tamsulosin HCl (Flomax) 0.4 mg BEDTIME ORAL 09/27/17 21:00 10/27/17 20:59 Tramadol HCl (Ultram) 50 mg EVERY 8 HOURS PRN ORAL For Pain 09/26/17 23:30 10/03/17 23:29 Vancomycin HCl (Vanco rx to dose) 1 ea DAILY PRN MISC Per rx protocol 09/27/17 19:15 10/27/17 19:14 PARVEEN APODACA Sep 27, 2017 19:55
[2017-09-27 20:00] VITALS: BP 123/63
[2017-09-27] MEDS: Tamsulosin 0.4mg cap ORAL SCH (20:47)
[2017-09-27] MEDS: Vancomycin 1gm in D5W 275ml IVPB SCH (21:39)
[2017-09-27] MEDS: Latanoprost 0.005% Opth 2.5ml Soln BOTH EYES SCH (21:39)
--- NOTE | 2017-09-27 23:42 | Internal Med Progress Note ---
Subjective Physician Name Dre Forbes Attending Physician Dre Forbes MD Current Medications Medications (Trade) Dose Ordered Sig/Terrence Route PRN Reason Start Time Stop Time Status Last Admin Dose Admin Albuterol/ Ipratropium (Albuterol/ Ipratropium) 3 ml Q4H PRN HHN Shortness of Breath 09/26/17 17:15 10/01/17 17:14 Albuterol/ Ipratropium (Albuterol/ Ipratropium) 3 ml Q6HRT HHN 09/26/17 19:00 10/01/17 18:59 09/27/17 20:56 Atorvastatin Calcium (Lipitor) 10 mg BEDTIME ORAL 09/27/17 21:00 10/27/17 20:59 Bisacodyl (Dulcolax) 10 mg PRN PRN RECTAL Constipation 09/26/17 23:30 10/26/17 23:29 Carvedilol (Coreg) 3.125 mg TWICE A DAY ORAL 09/27/17 09:00 10/27/17 08:59 09/27/17 09:16 Clopidogrel Bisulfate (Plavix) 75 mg DAILY ORAL 09/27/17 09:00 10/27/17 08:59 09/27/17 09:16 Dextrose (Dextrose 50%) STAT PRN IV Hypoglycemia 09/26/17 23:30 10/26/17 23:29 Donepezil HCl (Aricept) 5 mg DAILY ORAL 09/27/17 09:00 10/27/17 08:59 09/27/17 09:16 Folic Acid (Folate) 1 mg DAILY ORAL 09/27/17 09:00 10/27/17 08:59 09/27/17 09:16 Heparin Sodium (Porcine) (Heparin 5000 units/ml) 5,000 units EVERY 12 HOURS SUBQ 09/26/17 21:00 10/26/17 20:59 09/27/17 20:48 Insulin Aspart (NovoLOG) BEFORE MEALS AND HS SUBQ 09/27/17 06:30 10/27/17 06:29 Latanoprost (Xalatan) 1 drop BEDTIME BOTH EYES 09/27/17 21:00 10/27/17 20:59 09/27/17 21:39 Magnesium Hydroxide (Mom) 30 ml DAILY ORAL 09/27/17 09:00 10/27/17 08:59 09/27/17 09:25 Methylprednisolone Sodium Succinate (Solu-MEDROL) 60 mg EVERY 12 HOURS IVP 09/26/17 21:00 10/26/17 20:59 09/27/17 20:47 Mirtazapine (Remeron) 7.5 mg BEDTIME ORAL 09/27/17 21:00 10/27/17 20:59 Piperacillin Sod/ Tazobactam Sod 3.375 gm/Dextrose 55 ml @ 13.75 mls/ hr EVERY 8 HOURS IVPB 09/26/17 22:00 10/01/17 21:59 09/27/17 22:27 Tamsulosin HCl (Flomax) 0.4 mg BEDTIME ORAL 09/27/17 21:00 10/27/17 20:59 Tramadol HCl (Ultram) 50 mg EVERY 8 HOURS PRN ORAL For Pain 09/26/17 23:30 10/03/17 23:29 Vancomycin HCl (Vanco rx to dose) 1 ea DAILY PRN MISC Per rx protocol 09/27/17 19:15 10/27/17 19:14 Vancomycin HCl 1 gm/Dextrose 275 ml @ 183.708 mls/hr Q24H IVPB 09/27/17 21:30 10/02/17 21:29 09/27/17 21:39 Allergies: Coded Allergies: No Known Allergies (Verified , 05/23/07) Subjective awake, responsive with open eyes, on BiPAP Objective Last Vital Signs Date Time Temp Pulse Resp B/P (MAP) Pulse Ox O2 Delivery O2 Flow Rate FiO2 09/27/17 21:10 35 09/27/17 21:10 70 18 93 Non-Rebreather 09/27/17 20:56 15.0 09/27/17 20:00 97.9 123/63 Laboratory Tests Test 09/27/17 04:55 09/27/17 12:16 White Blood Count 14.7 K/UL (4.8-10.8) H Red Blood Count 5.55 M/UL (4.70-6.10) Hemoglobin 14.9 G/DL (14.2-18.0) Hematocrit 47.2 % (42.0-52.0) Mean Corpuscular Volume 85 FL (80-99) Mean Corpuscular Hemoglobin 26.8 PG (27.0-31.0) L Mean Corpuscular Hemoglobin Concent 31.5 G/DL (32.0-36.0) L Red Cell Distribution Width 14.2 % (11.6-14.8) Platelet Count 200 K/UL (150-450) Mean Platelet Volume 8.1 FL (6.5-10.1) Neutrophils (%) (Auto) % (45.0-75.0) Lymphocytes (%) (Auto) % (20.0-45.0) Monocytes (%) (Auto) % (1.0-10.0) Eosinophils (%) (Auto) % (0.0-3.0) Basophils (%) (Auto) % (0.0-2.0) Sodium Level 145 MMOL/L (136-145) Potassium Level 4.0 MMOL/L (3.5-5.1) Chloride Level 111 MMOL/L (98-107) H Carbon Dioxide Level 22 MMOL/L (21-32) Anion Gap 12 mmol/L (5-15) Blood Urea Nitrogen 29 mg/dL (7-18) H Creatinine 1.3 MG/DL (0.55-1.30) Estimat Glomerular Filtration Rate mL/min (>60) Glucose Level 146 MG/DL (74-106) H Calcium Level 9.8 MG/DL (8.5-10.1) # Phosphorus Level 4.2 MG/DL (2.5-4.9) Magnesium Level 2.1 MG/DL (1.8-2.4) Troponin I 0.017 ng/mL (0.000-0.056) Pro-B-Type Natriuretic Peptide 697 pg/mL (0-125) H Influenza Virus Type A IgM Antibody Pending Influenza Virus Type B IgM Antibody Pending Arterial Blood pH 7.419 (7.350-7.450) Arterial Blood Partial Pressure CO2 37.1 mmHg (35.0-45.0) Arterial Blood Partial Pressure O2 71.2 mmHg (75.0-100.0) L Arterial Blood HCO3 23.4 mmol/L (22.0-26.0) Arterial Blood Oxygen Saturation 93.3 % (92.0-98.0) Arterial Blood Base Excess -0.7 Gene Test Positive Microbiology Date/Time Source Procedure Growth Status 09/26/17 11:25 Blood Blood Culture - Preliminary Resulted 09/26/17 11:25 Blood Blood Culture - Preliminary Resulted 09/26/17 11:25 Urine,Clean Catch Urine Culture - Preliminary Resulted Intake and Output 09/26/17 09/27/17 19:00 07:00 Intake Total 500 ml 55.00 ml Balance 500 ml 55.00 ml Intake IV Total 55.00 ml Other 500 ml # Voids 51 1 # Bowel Movements 1 2 Objective General: awake , responsive on BiPAP. HEENT: NCAT, sclera anicteric, PERRL, EOMI. Neck: Supple, no significant jugular venous distention, Lungs: decrease air on base, Coarse breath sound. Heart: Regular rate and rhythm, normal S1/S2, no murmurs, PPM @ LCW. Abdomen: soft, nontender, nondistended. Normoactive bowel sounds. Extremities: No Cyanosis , clubbing or edema. Neuro: A&O x 2, Able to move all extremities Skin: warm, no rashes or lesions Assessment/Plan Assessment/Plan PROBLEM LIST: 1. Acute hypoxemic respiratory failure, likely secondary to exacerbation of his underlying interstitial lung disease and chronic obstructive pulmonary disease in the setting of recent respiratory infection. 2. Underlying interstitial lung disease (not typical usual interstitial pneumonia-like pattern, questionable chronic hypersensitivity pneumonitis versus nonspecific interstitial pneumonia). 3. Leukocytosis and lactic acidosis. 4. Possible healthcare-associated pneumonia. 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 6. Chronic obstructive pulmonary disease. 7. Coronary artery disease, status post coronary artery bypass graft and percutaneous coronary intervention. 8. Congestive heart failure. 9. Paroxysmal atrial fibrillation, status post pacemaker. 10. Prior deep venous thrombosis, no longer on anticoagulation. 11. History of cerebrovascular accident. 12. Hypertension. 13. Chronic kidney disease. TREATMENT PLAN: 1. Optimize pulmonary hygiene/mobilize as tolerated. 2. Kuvkw-diu-rytna and p.r.n. bronchodilators. 3. Solu-Medrol 60 IV b.i.d., 4. Zosyn (day #2). 5. Follow up sputum culture and respiratory panel. 6. Follow up CT scan of the chest. 7. Monitor volumes, p.r.n. diuresis - will give lasix 20 IV 2 1 now 8. Cardiology evaluation 9. Diet per [employer] with STRICT aspiration precautions 10. Change BiPAP to 12/5 nightly and p.r.n - 11. Titrate down FiO2 to keep saturations greater than 90%. 12. DVT prophylaxis, heparin subcutaneous. 13. The patient is full code. Dre Forbes MD Sep 27, 2017 23:42
[2017-09-28] VITALS: BP 129/65
[2017-09-28] MEDS: Albuterol/Ipratropium 3ml neb HHN SCH ×4 (01:49→19:15)
[2017-09-28 04:00] VITALS: BP 103/67
[2017-09-28] MEDS: Piperacillin/Tazobactam 3.375 GM in D5W 55 ML IVPB SCH ×3 (05:31→23:00)
[2017-09-28 05:56] LABS: MEAN CORPUSCULAR HEMOGLOBIN 27.8 PG (27.0-31.0); MEAN CORPUSCULAR HGB CONC 32.6 G/DL (32.0-36.0); MEAN CORPUSCULAR VOLUME 85 FL (80-99); MEAN PLATELET VOLUME 8.2 FL (6.5-10.1); PLATELET COUNT 213 K/UL (150-450); RED BLOOD COUNT 5.05 M/UL (4.70-6.10); RED CELL DISTRIBUTION WIDTH 14.4 % (11.6-14.8); WHITE BLOOD COUNT 13.7 K/UL (4.8-10.8)
[2017-09-28 06:10] LABS: ANION GAP 11 mmol/L (5-15); CALCIUM 9.3 MG/DL (8.5-10.1); CARBON DIOXIDE 23 MMOL/L (21-32); CHLORIDE 112 MMOL/L (98-107); CREATININE 1.2 MG/DL (0.55-1.30); POTASSIUM 3.5 MMOL/L (3.5-5.1); SODIUM 146 MMOL/L (136-145)
[2017-09-28] MEDS: NovoLOG Insulin Flexpen SUBQ SCH ×4 (06:11→21:00)
[2017-09-28 06:14] LABS: MAGNESIUM 2.2 MG/DL (1.8-2.4); PHOSPHORUS 3.8 MG/DL (2.5-4.9)
--- NOTE | 2017-09-28 07:15 | Consultation ---
DATE OF CONSULTATION: 09/27/2017 INFECTIOUS DISEASES CONSULTATION CONSULTING PHYSICIAN: Christel Lopez M.D. ATTENDING PHYSICIAN: Dre Forbes M.D. I was asked by Dr. Forbes to see this patient. REASON FOR CONSULTATION: Gram-positive bacteremia, sepsis, leukocytosis, pneumonia, possible UTI, and possible influenza infection. CHIEF COMPLAINT: The patient's chief complaint coming in to the hospital is COPD exacerbation, shortness of breath, and hypoxia. HISTORY OF PRESENT ILLNESS: This is an 87-year-old male, who comes in to [facility] with hypoxic and COPD exacerbation. The patient was noted to be septic and altered mental status. Chest x-ray shows possible pneumonia. The patient has leukocytosis. The patient's blood culture is growing out gram-positive organisms, which is gram-positive cocci in chains and pairs. Identification is pending. Infectious Diseases consultation is requested for antibiotic management. The patient has limited data as well as history. The patient was on vancomycin and Zosyn. He is also on steroids. MAR was noted. Orders were noted. Notes and records were reviewed. Case was discussed with RN. PAST MEDICAL HISTORY: Includes the following. The patient has past medical history of COPD, history of CHF, history of coronary artery disease, history of hypertension, history of atrial fibrillation, Alzheimer disease, history of dementia, history of osteoporosis, history of chronic renal failure, history of anemia, coronary artery disease already mentioned, history of hypertension and atrial fibrillation already mentioned. He is on blood thinners. He has history of interstitial lung disease, DVT, paroxysmal atrial fibrillation, history of CVA, hyperlipidemia, anxiety, and depression. MEDICATIONS: Upon reviewing the MAR, he is on the following medications. He is on atorvastatin and Lipitor. He is on mirtazapine. He is on Xalatan. He is on Flomax, vancomycin, and Zosyn. He is on IV steroids, methylprednisolone, Coreg, Plavix, Aricept, folate, MOM, insulin, bisacodyl, tramadol, heparin, and albuterol treatments. ALLERGIES: No known drug allergies. No antibiotic allergies. SOCIAL HISTORY: Per the records, he comes from [facility]. He is a former smoker. FAMILY HISTORY: Noncontributory per the records. No mention of exposure to tuberculosis or cancer. REVIEW OF SYSTEMS: CONSTITUTIONAL: Denies weakness, poorly responsive, and lethargic. He has a condom catheter, central line. HEAD AND NECK: Could not be assessed, but no obvious head pain or neck pain. He has a breathing mask and cannot reassess further. CARDIAC: No pressors. GASTROINTESTINAL: No nausea, vomiting, or diarrhea. GENITOURINARY: He has condom cath. PULMONARY: He has congestion and short of breath. SKIN: No rash. EXTREMITIES: No extremity pain. NEUROLOGIC: No seizures. He has no hemoptysis noted. He has generalized weakness. He is poorly responsive. He has no fevers. He is currently not on pressors. GENITOURINARY: He has earlier-mentioned condom cath. Review of systems otherwise limited. PHYSICAL EXAMINATION: VITAL SIGNS: Temperature is 97.7 degrees, pulse rate 67, respiratory rate 21, blood pressure is 95/65, and saturation 90% on nonrebreather, 93% to 94%. GENERAL: Lethargic, weak. He is on breathing mask. HEAD AND NECK: Oral exam, no thrush. Eye exam, no icterus. Normocephalic. LUNGS: Bilateral rhonchi and possible rales. HEART: Regular. No gallop or murmur. ABDOMEN: Soft. Positive bowel sounds. SKIN: No maculopapular rash. MUSCULOSKELETAL: No effusion. Legs are without cellulitis. PERIPHERAL VASCULAR: No cyanosis or gangrene. GENITOURINARY: Slightly cloudy urine in his condom cath. NEUROLOGICAL: Poorly responsive, lethargic, generalized weakness. LINES: Line sites are without phlebitis. LABORATORY AND DIAGNOSTIC DATA: Laboratory data is as follows. Urine culture is pending. Blood cultures gram-positive cocci in pairs and chains in both bottle sets. UA had 1+ leukocyte esterase, 3 to 4 white blood cells. He did have many bacteria. Creatinine 1.3. White count 14.7 and hemoglobin 14.9. Influenza is pending. Chest x-ray shows right basal atelectasis infiltrate. CT scan of the chest shows ground-glass opacities, chronic interstitial fibrosis, dense consolidation in the right lower lobe and portions of the left lower lobe. Past imaging of these cultures and labs. Creatinine 1.3. White count 14.7 and hemoglobin 14.9. White count on admission 13.9. ASSESSMENT AND PLAN: 1. The patient has gram-positive bacteremia. The patient is septic with elevated white count, systemic inflammatory response syndrome criteria. The patient has respiratory insufficiency, elevated respiratory rate over 20. Consider community-acquired pneumonia, in addition aspiration pneumonia, rule out influenza, rule out urinary tract infection. Continue vancomycin, Zosyn, and steroids because of the chronic obstructive pulmonary disease. Check blood cultures, sputum culture, laboratories, urine culture, and followup chest x-ray. Continue treatment with vancomycin and Zosyn for sepsis, pneumonia, and leukocytosis. 2. Chronic obstructive pulmonary disease. Continue steroids and pulmonary treatment. 3. Interstitial lung disease. 4. Deep venous thrombosis. 5. Coronary artery disease. 6. Coronary artery bypass graft. 7. Paroxysmal atrial fibrillation. 8. Cerebrovascular accident. 9. High aspiration risk. 10. Hyperlipidemia. 11. Anxiety. 12. Depression. 13. Pacemaker. 14. History of smoking in the past. 15. Alzheimer. 16. Dementia. 17. Family history noncontributory. 18. Allergies negative. 19. MAR was noted. 20. Case was discussed with RN. 21. Notes and records were reviewed. 22. Continue treatment per the primary consultants. Christel Lopez M.D. DR: Christopher JOB#: [id number] CC:
[2017-09-28 08:00] VITALS: BP 100/75
[2017-09-28] MEDS: Solu-MEDROL 125mg Inj IVP SCH (08:36)
[2017-09-28] MEDS: Heparin 5000 units/ml inj SUBQ SCH ×2 (08:37→21:05)
[2017-09-28] MEDS: Donepezil 5mg Tab ORAL SCH (08:37)
[2017-09-28] MEDS: Milk of Magnesia 30ml Ud ORAL SCH (08:38)
--- NOTE | 2017-09-28 11:23 | Pulmonology Progress Note ---
Assessment/Plan Problems: (1) COPD (chronic obstructive pulmonary disease) (2) Cardiomegaly (3) Pleural effusion (4) Low O2 saturation (5) Bacteremia Assessment/Plan ASSESSMENT: The patient is an 87-year-old [place] male with history of underlying interstitial lung disease, chronic obstructive pulmonary disease, coronary artery disease, status post coronary artery bypass graft, percutaneous coronary intervention, paroxysmal atrial fibrillation, status post pacemaker, congestive heart failure, prior deep venous thrombosis, no longer on anticoagulant, cerebrovascular accident, hypertension, and chronic kidney disease, presenting with shortness of breath, cough, and hypoxemia likely secondary to an exacerbation of his underlying obstructive lung disease or interstitial lung disease. There is no clear infiltrate on chest x-ray, but given his lactic acidosis and leukocytosis, it is reasonable to treat him for healthcare-associated organisms. PROBLEM LIST: 1. Acute hypoxemic respiratory failure, likely secondary to exacerbation of his underlying interstitial lung disease and chronic obstructive pulmonary disease in the setting of recent respiratory infection. 2. Underlying interstitial lung disease (not typical usual interstitial pneumonia-like pattern, questionable chronic hypersensitivity pneumonitis versus nonspecific interstitial pneumonia). 3. GPC Bacteremia/sepsis 4. Healthcare-associated pneumonia. 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 6. Chronic obstructive pulmonary disease. 7. Coronary artery disease, status post coronary artery bypass graft and percutaneous coronary intervention. 8. Congestive heart failure. 9. Paroxysmal atrial fibrillation, status post pacemaker. 10. Prior deep venous thrombosis, no longer on anticoagulation. 11. History of cerebrovascular accident. 12. Hypertension. 13. Chronic kidney disease. TREATMENT PLAN: 1. Optimize pulmonary hygiene/mobilize as tolerated. 2. [id number] and p.r.n. bronchodilators. 3. Decrease Solu-Medrol to 40 IV b.i.d., we will taper based on clinical response. 4. Abx per ID, F/U Cx's 5. Monitor volumes, p.r.n. diuresis 6. Cardiology evaluation 7. Diet per DISPATCHER RELAY with STRICT aspiration precautions 8. BiPAP to 12/5 nightly and p.r.n 9. Titrate down FiO2 to keep saturations greater than 90%. 10. DVT prophylaxis, heparin subcutaneous. 11. The patient is full code. Subjective Allergies: Coded Allergies: No Known Allergies (Verified , 05/23/07) Subjective AFVSS, on NRBFM, on/off BiPAP + cough, + SOB, no F/C CT reviewed Objective Last 24 Hour Vital Signs Date Time Temp Pulse Resp B/P (MAP) Pulse Ox O2 Delivery O2 Flow Rate FiO2 09/28/17 10:13 74 28 84 Facial 100 09/28/17 08:33 80 18 87 Non-Rebreather 15.0 100 09/28/17 08:23 Non-Rebreather 15.0 100 09/28/17 08:23 79 18 82 Non-Rebreather 15.0 100 09/28/17 08:00 97.9 76 18 100/75 90 Non-Rebreather 15.0 09/28/17 08:00 79 09/28/17 04:00 97.8 73 32 103/67 95 Non-Rebreather 15.0 09/28/17 04:00 93 09/28/17 02:01 74 18 94 Non-Rebreather 80 09/28/17 02:01 35 09/28/17 01:49 83 18 95 Non-Rebreather 15.0 100 09/28/17 00:00 97.6 87 28 129/65 94 Non-Rebreather 15.0 09/28/17 00:00 95 09/27/17 21:10 35 09/27/17 21:10 70 18 93 Non-Rebreather 80 09/27/17 20:56 97 18 95 Non-Rebreather 15.0 100 09/27/17 20:56 Non-Rebreather 15.0 100 09/27/17 20:00 75 09/27/17 20:00 97.9 98 32 123/63 91 Non-Rebreather 09/27/17 18:00 64 95/65 09/27/17 16:00 64 09/27/17 16:00 97.7 67 21 95/65 90 Non-Rebreather 15.0 100 09/27/17 13:22 62 17 90 Non-Rebreather 14.0 55 09/27/17 13:12 92 18 94 Non-Rebreather 15.0 100 09/27/17 13:12 35 09/27/17 12:56 62 09/27/17 12:00 97.7 78 22 126/79 93 Non-Rebreather 15.0 100 Intake and Output 09/27/17 09/28/17 19:00 07:00 Intake Total 343.750 ml Output Total 275 ml 410 ml Balance -275 ml -66.250 ml Intake IV Total 343.750 ml Output Urine Total 275 ml 410 ml # Bowel Movements 1 2 General Appearance: no acute distress, cachetic HEENT: normocephalic, atraumatic, mucous membranes moist Respiratory/Chest: rhonchi Cardiovascular: normal peripheral pulses, normal rate, regular rhythm Abdomen: normal bowel sounds, soft, non tender, no organomegaly, no mass Extremities: no cyanosis, no clubbing, no edema Microbiology Date/Time Source Procedure Growth Status 09/26/17 11:25 Blood Blood Culture - Preliminary Resulted 09/26/17 11:25 Blood Blood Culture - Preliminary Resulted 09/26/17 11:25 Nasal Nares MRSA Culture - Final NO METHICILLIN RESISTANT STAPH AUREUS... Complete 09/26/17 11:25 Sputum Expectorated Gram Stain - Final Resulted 09/26/17 11:25 Sputum Culture - Preliminary Gram Negative Bacillus 1 Gram Negative Bacillus 2 Resulted 09/26/17 11:25 Urine,Clean Catch Urine Culture - Preliminary Gram Negative Bacillus 1 Gram Negative Bacillus 2 Resulted 09/26/17 11:25 Rectum VRE Culture - Final NO VANCOMYCIN RESISTANT ENTEROCOCCUS ... Complete Laboratory Tests 09/27/17 12:16: Arterial Blood pH 7.419, Arterial Blood Partial Pressure CO2 37.1, Arterial Blood Partial Pressure O2 71.2L, Arterial Blood HCO3 23.4, Arterial Blood Oxygen Saturation 93.3, Arterial Blood Base Excess -0.7, Gene Test Positive 09/28/17 04:50: White Blood Count 13.7H, Red Blood Count 5.05, Hemoglobin 14.1L, Hematocrit 43.2 , Mean Corpuscular Volume 85, Mean Corpuscular Hemoglobin 27.8, Mean Corpuscular Hemoglobin Concent 32.6, Red Cell Distribution Width 14.4, Platelet Count 213, Mean Platelet Volume 8.2, Neutrophils (%) (Auto) , Lymphocytes (%) ( Auto) , Monocytes (%) (Auto) , Eosinophils (%) (Auto) , Basophils (%) (Auto) , Sodium Level 146H, Potassium Level 3.5, Chloride Level 112H, Carbon Dioxide Level 23, Anion Gap 11, Blood Urea Nitrogen 33H, Creatinine 1.2, Estimat Glomerular Filtration Rate , Glucose Level 109H, Calcium Level 9.3, Phosphorus Level 3.8, Magnesium Level 2.2 Current Medications Medications (Trade) Dose Ordered Sig/Terrence Route PRN Reason Start Time Stop Time Status Last Admin Dose Admin Albuterol/ Ipratropium (Albuterol/ Ipratropium) 3 ml Q4H PRN HHN Shortness of Breath 09/26/17 17:15 10/01/17 17:14 Albuterol/ Ipratropium (Albuterol/ Ipratropium) 3 ml Q6HRT HHN 09/26/17 19:00 10/01/17 18:59 09/28/17 08:22 Atorvastatin Calcium (Lipitor) 10 mg BEDTIME ORAL 09/27/17 21:00 10/27/17 20:59 Bisacodyl (Dulcolax) 10 mg PRN PRN RECTAL Constipation 09/26/17 23:30 10/26/17 23:29 Carvedilol (Coreg) 3.125 mg TWICE A DAY ORAL 09/27/17 09:00 10/27/17 08:59 09/27/17 09:16 Clopidogrel Bisulfate (Plavix) 75 mg DAILY ORAL 09/27/17 09:00 10/27/17 08:59 09/27/17 09:16 Dextrose (Dextrose 50%) STAT PRN IV Hypoglycemia 09/26/17 23:30 10/26/17 23:29 Donepezil HCl (Aricept) 5 mg DAILY ORAL 09/27/17 09:00 10/27/17 08:59 09/27/17 09:16 Folic Acid (Folate) 1 mg DAILY ORAL 09/27/17 09:00 10/27/17 08:59 09/27/17 09:16 Heparin Sodium (Porcine) (Heparin 5000 units/ml) 5,000 units EVERY 12 HOURS SUBQ 09/26/17 21:00 10/26/17 20:59 09/28/17 08:37 Insulin Aspart (NovoLOG) BEFORE MEALS AND HS SUBQ 09/27/17 06:30 10/27/17 06:29 Latanoprost (Xalatan) 1 drop BEDTIME BOTH EYES 09/27/17 21:00 10/27/17 20:59 09/27/17 21:39 Magnesium Hydroxide (Mom) 30 ml DAILY ORAL 09/27/17 09:00 10/27/17 08:59 09/27/17 09:25 Methylprednisolone Sodium Succinate (Solu-MEDROL) 60 mg EVERY 12 HOURS IVP 09/26/17 21:00 10/26/17 20:59 09/28/17 08:36 Mirtazapine (Remeron) 7.5 mg BEDTIME ORAL 09/27/17 21:00 10/27/17 20:59 Piperacillin Sod/ Tazobactam Sod 3.375 gm/Dextrose 55 ml @ 13.75 mls/ hr EVERY 8 HOURS IVPB 09/26/17 22:00 10/01/17 21:59 09/28/17 05:31 Tamsulosin HCl (Flomax) 0.4 mg BEDTIME ORAL 09/27/17 21:00 10/27/17 20:59 Tramadol HCl (Ultram) 50 mg EVERY 8 HOURS PRN ORAL For Pain 09/26/17 23:30 10/03/17 23:29 Vancomycin HCl (Vanco rx to dose) 1 ea DAILY PRN MISC Per rx protocol 09/27/17 19:15 10/27/17 19:14 Vancomycin HCl 1 gm/Dextrose 275 ml @ 183.708 mls/hr Q24H IVPB 09/27/17 21:30 10/02/17 21:29 09/27/17 21:39 LEANNE DOLAN M.D. Sep 28, 2017 11:23
[2017-09-28 12:00] VITALS: BP 108/60
[2017-09-28] MEDS ORDERED: NS 500ML ONE (15:59)
[2017-09-28] MEDS ORDERED: Tubing IV Secondary IV ONE (15:59)
[2017-09-28 16:00] VITALS: BP 106/73
[2017-09-28 20:00] VITALS: BP 100/62
[2017-09-28] MEDS ORDERED: Solu-MEDROL 40mg Inj IVP SCH (21:00)
[2017-09-28] MEDS: Tamsulosin 0.4mg cap ORAL SCH (21:00)
[2017-09-28] MEDS: Vancomycin 1gm in D5W 275ml IVPB SCH (21:03)
[2017-09-28] MEDS: Latanoprost 0.005% Opth 2.5ml Soln BOTH EYES SCH (21:03)
--- NOTE | 2017-09-28 22:47 | Internal Med Progress Note ---
Subjective Physician Name Dre Forbes Attending Physician Dre Forbes MD Current Medications Medications (Trade) Dose Ordered Sig/Terrence Route PRN Reason Start Time Stop Time Status Last Admin Dose Admin Albuterol/ Ipratropium (Albuterol/ Ipratropium) 3 ml Q4H PRN HHN Shortness of Breath 09/26/17 17:15 10/01/17 17:14 Albuterol/ Ipratropium (Albuterol/ Ipratropium) 3 ml Q6HRT HHN 09/28/17 13:00 10/03/17 12:59 09/28/17 19:15 Atorvastatin Calcium (Lipitor) 10 mg BEDTIME ORAL 09/27/17 21:00 10/27/17 20:59 Bisacodyl (Dulcolax) 10 mg PRN PRN RECTAL Constipation 09/26/17 23:30 10/26/17 23:29 Carvedilol (Coreg) 3.125 mg TWICE A DAY ORAL 09/27/17 09:00 10/27/17 08:59 09/27/17 09:16 Clopidogrel Bisulfate (Plavix) 75 mg DAILY ORAL 09/27/17 09:00 10/27/17 08:59 09/27/17 09:16 Dextrose (Dextrose 50%) STAT PRN IV Hypoglycemia 09/26/17 23:30 10/26/17 23:29 Donepezil HCl (Aricept) 5 mg DAILY ORAL 09/27/17 09:00 10/27/17 08:59 09/27/17 09:16 Folic Acid (Folate) 1 mg DAILY ORAL 09/27/17 09:00 10/27/17 08:59 09/27/17 09:16 Heparin Sodium (Porcine) (Heparin 5000 units/ml) 5,000 units EVERY 12 HOURS SUBQ 09/26/17 21:00 10/26/17 20:59 09/28/17 21:05 Insulin Aspart (NovoLOG) BEFORE MEALS AND HS SUBQ 09/27/17 06:30 10/27/17 06:29 Latanoprost (Xalatan) 1 drop BEDTIME BOTH EYES 09/27/17 21:00 10/27/17 20:59 09/28/17 21:03 Magnesium Hydroxide (Mom) 30 ml DAILY ORAL 09/27/17 09:00 10/27/17 08:59 09/27/17 09:25 Methylprednisolone Sodium Succinate (Solu-MEDROL) 40 mg EVERY 12 HOURS IVP 09/28/17 21:00 10/28/17 20:59 09/28/17 21:03 Mirtazapine (Remeron) 7.5 mg BEDTIME ORAL 09/27/17 21:00 10/27/17 20:59 Piperacillin Sod/ Tazobactam Sod 3.375 gm/Dextrose 55 ml @ 13.75 mls/ hr EVERY 8 HOURS IVPB 09/26/17 22:00 10/01/17 21:59 09/28/17 13:38 Tamsulosin HCl (Flomax) 0.4 mg BEDTIME ORAL 09/27/17 21:00 10/27/17 20:59 Tramadol HCl (Ultram) 50 mg EVERY 8 HOURS PRN ORAL For Pain 09/26/17 23:30 10/03/17 23:29 Vancomycin HCl (Vanco rx to dose) 1 ea DAILY PRN MISC Per rx protocol 09/27/17 19:15 10/27/17 19:14 Vancomycin HCl 1 gm/Dextrose 275 ml @ 183.708 mls/hr Q24H IVPB 09/27/17 21:30 10/02/17 21:29 09/28/17 21:03 Allergies: Coded Allergies: No Known Allergies (Verified , 05/23/07) Subjective awake, more responsive, open eyes, talking, off BiPAP Objective Last Vital Signs Date Time Temp Pulse Resp B/P (MAP) Pulse Ox O2 Delivery O2 Flow Rate FiO2 09/28/17 20:00 70 09/28/17 20:00 97.7 20 100/62 94 Nasal Cannula 6.0 09/28/17 19:26 40 Laboratory Tests Test 09/28/17 04:50 White Blood Count 13.7 K/UL (4.8-10.8) H Red Blood Count 5.05 M/UL (4.70-6.10) Hemoglobin 14.1 G/DL (14.2-18.0) L Hematocrit 43.2 % (42.0-52.0) Mean Corpuscular Volume 85 FL (80-99) Mean Corpuscular Hemoglobin 27.8 PG (27.0-31.0) Mean Corpuscular Hemoglobin Concent 32.6 G/DL (32.0-36.0) Red Cell Distribution Width 14.4 % (11.6-14.8) Platelet Count 213 K/UL (150-450) Mean Platelet Volume 8.2 FL (6.5-10.1) Neutrophils (%) (Auto) % (45.0-75.0) Lymphocytes (%) (Auto) % (20.0-45.0) Monocytes (%) (Auto) % (1.0-10.0) Eosinophils (%) (Auto) % (0.0-3.0) Basophils (%) (Auto) % (0.0-2.0) Sodium Level 146 MMOL/L (136-145) H Potassium Level 3.5 MMOL/L (3.5-5.1) Chloride Level 112 MMOL/L (98-107) H Carbon Dioxide Level 23 MMOL/L (21-32) Anion Gap 11 mmol/L (5-15) Blood Urea Nitrogen 33 mg/dL (7-18) H Creatinine 1.2 MG/DL (0.55-1.30) Estimat Glomerular Filtration Rate mL/min (>60) Glucose Level 109 MG/DL (74-106) H Calcium Level 9.3 MG/DL (8.5-10.1) Phosphorus Level 3.8 MG/DL (2.5-4.9) Magnesium Level 2.2 MG/DL (1.8-2.4) Microbiology Date/Time Source Procedure Growth Status 09/26/17 11:25 Blood Blood Culture - Preliminary Resulted 09/26/17 11:25 Blood Blood Culture - Preliminary Resulted 09/26/17 11:25 Nasal Nares MRSA Culture - Final NO METHICILLIN RESISTANT STAPH AUREUS... Complete 09/26/17 11:25 Sputum Expectorated Gram Stain - Final Resulted 09/26/17 11:25 Sputum Culture - Preliminary Gram Negative Bacillus 1 Gram Negative Bacillus 2 Resulted 09/26/17 11:25 Urine,Clean Catch Urine Culture - Preliminary Gram Negative Bacillus 1 Gram Negative Bacillus 2 Resulted 09/26/17 11:25 Rectum VRE Culture - Final NO VANCOMYCIN RESISTANT ENTEROCOCCUS ... Complete Intake and Output 09/27/17 09/28/17 19:00 07:00 Intake Total 343.750 ml Output Total 275 ml 410 ml Balance -275 ml -66.250 ml Intake IV Total 343.750 ml Output Urine Total 275 ml 410 ml # Bowel Movements 1 2 Objective General: awake , responsive, talking HEENT: NCAT, sclera anicteric, PERRL, EOMI. Neck: Supple, no significant jugular venous distention, Lungs: decrease air on base, less Coarse breath sound. No wheezes. Heart: Regular rate and rhythm, normal S1/S2, no murmurs, PPM @ LCW. Abdomen: soft, nontender, nondistended. Normoactive bowel sounds. Extremities: No Cyanosis , clubbing or edema. Neuro: A&O x 2, Able to move all extremities Skin: warm, no rashes or lesions Assessment/Plan Assessment/Plan PROBLEM LIST: 1. Acute hypoxemic respiratory failure, likely secondary to exacerbation of his underlying interstitial lung disease and chronic obstructive pulmonary disease in the setting of recent respiratory infection. 2. Underlying interstitial lung disease (not typical usual interstitial pneumonia-like pattern, questionable chronic hypersensitivity pneumonitis versus nonspecific interstitial pneumonia). 3. Leukocytosis and lactic acidosis. 4. Possible healthcare-associated pneumonia. 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 6. Chronic obstructive pulmonary disease. 7. Coronary artery disease, status post coronary artery bypass graft and percutaneous coronary intervention. 8. Congestive heart failure. 9. Paroxysmal atrial fibrillation, status post pacemaker. 10. Prior deep venous thrombosis, no longer on anticoagulation. 11. History of cerebrovascular accident. 12. Hypertension. 13. Chronic kidney disease. TREATMENT PLAN: ptimize pulmonary hygiene/mobilize as tolerated. [id number] and p.r.n. bronchodilators. Solu-Medrol 60 IV b.i.d., Abx: Zosyn and Vanco IV Follow up sputum culture and respiratory panel. Monitor volumes, p.r.n. diuresis - will give lasix 20 IV 2 1 now Diet per PROGRAM DIRECTOR/TRAFFIC DIRECTOR with STRICT aspiration precautions DVT prophylaxis, heparin subcutaneous. full code. CT of Chest: Impression: Dense consolidation of most the right lower lobe, less extensive dense consolidation of portions of the left lower lobe. Nonspecific but likely representing infiltrates secondary to pneumonia. Pulmonary edema also a possibility Markedly elevated right hemidiaphragm. This accounts for much of the basilar opacity seen on recent chest radiograph Interstitial septal thickening and pulmonary parenchymal groundglass opacity. This is nonspecific with a large differential. However, presence of subpleural honeycombing suggests a likely component of chronic interstitial fibrosis. Dilated right main pulmonary artery, consistent with pulmonary arterial hypertension Cardiomegaly Small pericardial effusion Ectatic but not quite aneurysmal ascending thoracic aorta Postsurgical changes described, including pacemaker, evidence of prior median sternotomy Cholelithiasis Colonic diverticulosis Incidental findings of are multiple bilateral renal cysts, degenerative spondylosis Dre Forbes MD Sep 28, 2017 22:47
[2017-09-29] VITALS: BP 117/74
[2017-09-29] MEDS: Albuterol/Ipratropium 3ml neb HHN SCH ×4 (01:10→21:48)
[2017-09-29 04:00] VITALS: BP 130/76
--- NOTE | 2017-09-29 05:02 | Consultation ---
DATE OF CONSULTATION: 09/28/2017 CARDIOLOGY CONSULTATION CONSULTING PHYSICIAN: Sher Jaimes M.D. REFERRING PHYSICIAN: Dre Forbes M.D. REASON FOR CONSULTATION: Management of dyspnea. HISTORY OF PRESENT ILLNESS: The patient is a very unfortunate 87-year-old gentleman, who is transferred from nursing facility for shortness of breath and low O2 saturations. The patient had productive cough with blood-tinged sputum. At the time of arrival to the emergency department, the patient denies any chest pain. His initial blood pressure was 97/68 with pulse of 62. A 12-lead electrocardiogram in the emergency department significant for sinus tachycardia at a rate of [address] and T-wave abnormalities. The patient was admitted to the [facility] for further evaluation and management. He is rather a poor historian and therefore this report is prepared by review of the old records. PAST MEDICAL HISTORY: History of hypertension, history of congestive heart failure, history of atrial fibrillation, history of COPD, history of dual-chamber pacemaker implantation, history of pneumonia, and history of coronary artery disease. PAST SURGICAL HISTORY: Dual-chamber pacemaker implantation. MEDICATIONS: The list of medication at the nursing facility, Fosamax 70 mg p.o. weekly, atorvastatin 10 mg p.o. at bedtime, Lipitor 10 mg p.o. at bedtime, bisacodyl 10 mg rectal daily p.r.n. constipation, carvedilol 3.125 mg twice daily, clopidogrel 75 mg p.o. daily, Aricept 5 mg p.o. daily, Pepcid 20 mg p.o. daily, Toviaz 4 mg p.o. daily, folic acid 1 mg p.o. daily, Xalatan eye drops, milk of magnesia 30 mL p.o. daily, magnesium oxide 400 mg p.o. daily, Remeron 7.5 mg at bedtime, multivitamin one tablet p.o. daily, 10 mg p.o. daily, prednisone 5 mg p.o. daily, tamsulosin 0.4 mg p.o. at bedtime, and Ultram 50 mg q.8 h. p.r.n. pain. SOCIAL HISTORY: No history of tobacco, alcohol, or illicit drug use. The patient is a resident of a nursing facility. FAMILY HISTORY: No premature coronary artery disease in the first-degree relatives. REVIEW OF SYSTEMS: HEENT: Denies any headache, diplopia, or blurred vision. CONSTITUTIONAL: Denies any fever, chills, night sweats, or weight loss. CARDIOVASCULAR: Denies any chest pain. He had shortness of breath. Denies any PND, orthopnea, or leg swelling. PULMONARY: Productive cough with blood tinged sputum on O2 saturation and shortness of breath. GASTROINTESTINAL: Denies any nausea, vomiting, diarrhea, constipation, abdominal pain, or GI bleed. GENITOURINARY: Denies any hematuria, dysuria, or incontinence. NEUROLOGIC: Denies any motor dysfunction, sensory deficit, or altered speech. PHYSICAL EXAMINATION: VITAL SIGNS: Blood pressure was 92/68, respirations of 18, pulse of 62, temperature 98.1 degrees Fahrenheit, and O2 saturation 94% on nasal cannula of 4 liters per minute and FiO2 of 28%. GENERAL: The patient is a very unfortunate 87-year-old gentleman, awake, and appears to be confused. HEENT: Atraumatic and normocephalic. Anicteric. Pupils are equal, round, and reactive to light and accommodation. Extraocular muscles intact. NECK: JVP is less than 5 cm. No carotid bruit. Carotid upstrokes 2+ bilaterally. CARDIOVASCULAR: Normal S1 and S2. Regular rate and rhythm. Tachycardic. A 2/6 mid systolic murmur at the left sternal border. PMI is at fourth intercoastal space in midclavicular line. LUNGS: Diminished breath sounds at both bases. Scattered crackles. ABDOMEN: Soft, nontender, and nondistended. No hepatosplenomegaly. Positive bowel sounds. EXTREMITIES: No evidence of edema, clubbing, or cyanosis. LABORATORY AND DIAGNOSTIC DATA: Chest x-ray shows right basilar atelectasis infiltrate and likely pleural effusion, generalized interstitial congestion, and smaller left pleural effusion. Laboratory findings, WBC 15.9, hemoglobin 15.5, hematocrit 49.2, and platelet count is 247,000. Sodium 145, potassium 4.0, chloride 111, carbon dioxide 22, BUN of 29, creatinine 1.3, glucose 146, and calcium is 9.8. ProBNP is 695. Troponin I is 0.17. ASSESSMENT AND PLAN: The patient is a very unfortunate 87-year-old gentleman, seen in Cardiology consultation at request of Dr. Forbes. 1. Dyspnea, most likely due to pneumonia/leukocytosis. The patient will benefit from intravenous hydration. We will obtain 2D echocardiography for assessment of left ventricular systolic and diastolic function. Diastolic data can provide some hemodynamic measures. 2. Dual-chamber pacemaker implantation. Currently, the patient is having his own increasing activity with sinus tachycardia on 12-lead electrocardiogram on arrival to the hospital. 3. History of hypertension. 4. History of paroxysmal atrial fibrillation, currently in sinus rhythm. The patient was on clopidogrel alone, which is not protecting him against stroke. His CHADS-VASC score is elevated in view of age, hypertension, and history of coronary artery disease. He requires to be on novel oral anticoagulation therapy. 5. History of coronary artery disease, status post coronary artery bypass graft surgery. I would like to thank, Dr. Forbes, for allowing me to participate in the care of this patient. Sher Jaimes M.D. DR: LAYTON JOB#: [id number] CC:
[2017-09-29 05:53] LABS: MEAN CORPUSCULAR HEMOGLOBIN 27.4 PG (27.0-31.0); MEAN CORPUSCULAR VOLUME 86 FL (80-99); MEAN PLATELET VOLUME 7.9 FL (6.5-10.1); PLATELET COUNT 223 K/UL (150-450); RED BLOOD COUNT 5.09 M/UL (4.70-6.10); RED CELL DISTRIBUTION WIDTH 14.2 % (11.6-14.8); WHITE BLOOD COUNT 9.8 K/UL (4.8-10.8)
[2017-09-29 06:05] LABS: ANION GAP 11 mmol/L (5-15); CALCIUM 8.5 MG/DL (8.5-10.1); CARBON DIOXIDE 23 MMOL/L (21-32); CHLORIDE 110 MMOL/L (98-107); CREATININE 1.1 MG/DL (0.55-1.30); MAGNESIUM 2.3 MG/DL (1.8-2.4); PHOSPHORUS 2.9 MG/DL (2.5-4.9); POTASSIUM 3.5 MMOL/L (3.5-5.1); SODIUM 144 MMOL/L (136-145)
[2017-09-29] MEDS: NovoLOG Insulin Flexpen SUBQ SCH ×4 (06:23→21:00)
[2017-09-29] MEDS: Piperacillin/Tazobactam 3.375 GM in D5W 55 ML IVPB SCH ×4 (06:23→23:27)
[2017-09-29 08:00] VITALS: BP 134/74
[2017-09-29] MEDS: Milk of Magnesia 30ml Ud ORAL SCH (09:00)
--- NOTE | 2017-09-29 09:56 | Pulmonology Progress Note ---
Assessment/Plan Problems: (1) COPD (chronic obstructive pulmonary disease) (2) Cardiomegaly (3) Pleural effusion (4) Low O2 saturation (5) Bacteremia Assessment/Plan ASSESSMENT: The patient is an 87-year-old Somali male with history of underlying interstitial lung disease, chronic obstructive pulmonary disease, coronary artery disease, status post coronary artery bypass graft, percutaneous coronary intervention, paroxysmal atrial fibrillation, status post pacemaker, congestive heart failure, prior deep venous thrombosis, no longer on anticoagulant, cerebrovascular accident, hypertension, and chronic kidney disease, presenting with shortness of breath, cough, and hypoxemia likely secondary to an exacerbation of his underlying obstructive lung disease or interstitial lung disease. There is no clear infiltrate on chest x-ray, but given his lactic acidosis and leukocytosis, it is reasonable to treat him for healthcare-associated organisms. PROBLEM LIST: 1. Acute hypoxemic respiratory failure, likely secondary to exacerbation of his underlying interstitial lung disease and chronic obstructive pulmonary disease in the setting of recent respiratory infection. 2. Underlying interstitial lung disease (not typical usual interstitial pneumonia-like pattern, questionable chronic hypersensitivity pneumonitis versus nonspecific interstitial pneumonia). 3. GPC Bacteremia/sepsis 4. Healthcare-associated pneumonia. 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 6. Chronic obstructive pulmonary disease. 7. Coronary artery disease, status post coronary artery bypass graft and percutaneous coronary intervention. 8. Congestive heart failure. 9. Paroxysmal atrial fibrillation, status post pacemaker. 10. Prior deep venous thrombosis, no longer on anticoagulation. 11. History of cerebrovascular accident. 12. Hypertension. 13. Chronic kidney disease. TREATMENT PLAN: 1. Optimize pulmonary hygiene/mobilize as tolerated. 2. Lhlvx-ulp-dasql and p.r.n. bronchodilators. 3. Decrease Solu-Medrol to 30 IV b.i.d., we will taper based on clinical response. 4. Abx per ID, F/U repeat BCx's 5. Monitor volumes, p.r.n. diuresis 6. Cardiology recs 7. Diet per DYNAMO REPAIRER with STRICT aspiration precautions 8. BiPAP to 12/5 nightly and p.r.n 9. Titrate down FiO2 to keep saturations greater than 90%. 10. DVT prophylaxis, heparin subcutaneous. 11. The patient is full code. Subjective Allergies: Coded Allergies: No Known Allergies (Verified , 05/23/07) Subjective AFVSS, now on NC, less cough, + SOB, no F/C Objective Last 24 Hour Vital Signs Date Time Temp Pulse Resp B/P (MAP) Pulse Ox O2 Delivery O2 Flow Rate FiO2 09/29/17 08:00 75 09/29/17 08:00 97.3 85 22 134/74 94 Nasal Cannula 6.0 09/29/17 07:13 61 20 94 Nasal Cannula 4.0 36 09/29/17 07:03 Nasal Cannula 5.0 40 09/29/17 07:03 61 18 91 Nasal Cannula 5.0 40 09/29/17 07:03 91 Nasal Cannula 5.0 40 09/29/17 04:00 97.0 85 20 130/76 94 Nasal Cannula 6.0 09/29/17 04:00 79 09/29/17 01:20 61 18 95 Nasal Cannula 5.0 40 09/29/17 01:10 60 18 91 Nasal Cannula 5.0 40 09/29/17 00:00 63 09/29/17 00:00 97.7 60 20 117/74 95 Nasal Cannula 6.0 09/28/17 20:00 20 93 Nasal Cannula 6.0 09/28/17 20:00 70 09/28/17 20:00 97.7 70 20 100/62 94 Nasal Cannula 6.0 09/28/17 19:26 70 18 91 Nasal Cannula 5.0 40 09/28/17 19:15 Nasal Cannula 5.0 40 09/28/17 19:15 71 18 90 Nasal Cannula 5.0 40 09/28/17 19:15 90 Nasal Cannula 5.0 40 09/28/17 16:00 98.7 70 19 106/73 91 Nasal Cannula 6.0 09/28/17 16:00 89 09/28/17 12:55 87 18 84 Nasal Cannula 4.0 36 09/28/17 12:41 87 18 84 Nasal Cannula 4.0 36 09/28/17 12:02 84 Simple Mask 6.0 09/28/17 12:02 Simple Mask 6.0 09/28/17 12:00 97.8 81 19 108/60 86 Nasal Cannula 4.0 09/28/17 11:43 82 09/28/17 11:29 72 25 90 Facial 100 09/28/17 10:13 74 28 84 Facial 100 Intake and Output 09/28/17 09/29/17 19:00 07:00 Intake Total 96.25 ml 330.000 ml Output Total 350 ml 200 ml Balance -253.75 ml 130.000 ml Intake IV Total 96.25 ml 330.000 ml Output Urine Total 350 ml 200 ml # Bowel Movements 1 General Appearance: WD/WN, no acute distress HEENT: normocephalic, atraumatic, mucous membranes moist Respiratory/Chest: chest wall non-tender, no respiratory distress, rhonchi Cardiovascular: normal peripheral pulses, normal rate, regular rhythm Abdomen: normal bowel sounds, soft, non tender, no organomegaly, non distended Extremities: no cyanosis, no clubbing, no edema Microbiology Date/Time Source Procedure Growth Status 09/26/17 11:25 Blood Blood Culture - Preliminary Gram Positive Cocci Resulted 09/26/17 11:25 Blood Blood Culture - Preliminary Gram Positive Cocci Resulted 09/26/17 11:25 Nasal Nares MRSA Culture - Final NO METHICILLIN RESISTANT STAPH AUREUS... Complete 09/26/17 11:25 Sputum Expectorated Gram Stain - Final Resulted 09/26/17 11:25 Sputum Culture - Preliminary Gram Negative Bacillus 1 Enterobacter Aerogenes Resulted 09/26/17 11:25 Urine,Clean Catch Urine Culture - Final Klebsiella Pneumoniae Complete 09/26/17 11:25 Rectum VRE Culture - Final NO VANCOMYCIN RESISTANT ENTEROCOCCUS ... Complete Laboratory Tests 09/29/17 03:30: White Blood Count 9.8, Red Blood Count 5.09, Hemoglobin 13.9L, Hematocrit 43.5, Mean Corpuscular Volume 86, Mean Corpuscular Hemoglobin 27.4, Mean Corpuscular Hemoglobin Concent 32.0, Red Cell Distribution Width 14.2, Platelet Count 223, Mean Platelet Volume 7.9, Neutrophils (%) (Auto) , Lymphocytes (%) (Auto) , Monocytes (%) (Auto) , Eosinophils (%) (Auto) , Basophils (%) (Auto) , Sodium Level 144, Potassium Level 3.5, Chloride Level 110H, Carbon Dioxide Level 23, Anion Gap 11, Blood Urea Nitrogen 36H, Creatinine 1.1, Estimat Glomerular Filtration Rate , Glucose Level 111H, Calcium Level 8.5, Phosphorus Level 2.9, Magnesium Level 2.3 Current Medications Medications (Trade) Dose Ordered Sig/Terrence Route PRN Reason Start Time Stop Time Status Last Admin Dose Admin Albuterol/ Ipratropium (Albuterol/ Ipratropium) 3 ml Q4H PRN HHN Shortness of Breath 09/26/17 17:15 10/01/17 17:14 Albuterol/ Ipratropium (Albuterol/ Ipratropium) 3 ml Q6HRT HHN 09/28/17 13:00 10/03/17 12:59 09/29/17 07:03 Atorvastatin Calcium (Lipitor) 10 mg BEDTIME ORAL 09/27/17 21:00 10/27/17 20:59 Bisacodyl (Dulcolax) 10 mg PRN PRN RECTAL Constipation 09/26/17 23:30 10/26/17 23:29 Carvedilol (Coreg) 3.125 mg TWICE A DAY ORAL 09/27/17 09:00 10/27/17 08:59 09/27/17 09:16 Clopidogrel Bisulfate (Plavix) 75 mg DAILY ORAL 09/27/17 09:00 10/27/17 08:59 09/27/17 09:16 Dextrose (Dextrose 50%) STAT PRN IV Hypoglycemia 09/26/17 23:30 10/26/17 23:29 Donepezil HCl (Aricept) 5 mg DAILY ORAL 09/27/17 09:00 10/27/17 08:59 09/27/17 09:16 Folic Acid (Folate) 1 mg DAILY ORAL 09/27/17 09:00 10/27/17 08:59 09/27/17 09:16 Heparin Sodium (Porcine) (Heparin 5000 units/ml) 5,000 units EVERY 12 HOURS SUBQ 09/26/17 21:00 10/26/17 20:59 09/28/17 21:05 Insulin Aspart (NovoLOG) BEFORE MEALS AND HS SUBQ 09/27/17 06:30 10/27/17 06:29 Latanoprost (Xalatan) 1 drop BEDTIME BOTH EYES 09/27/17 21:00 10/27/17 20:59 09/28/17 21:03 Magnesium Hydroxide (Mom) 30 ml DAILY ORAL 09/27/17 09:00 10/27/17 08:59 09/27/17 09:25 Methylprednisolone Sodium Succinate (Solu-MEDROL) 40 mg EVERY 12 HOURS IVP 09/28/17 21:00 10/28/17 20:59 09/28/17 21:03 Mirtazapine (Remeron) 7.5 mg BEDTIME ORAL 09/27/17 21:00 10/27/17 20:59 Piperacillin Sod/ Tazobactam Sod 3.375 gm/Dextrose 55 ml @ 13.75 mls/ hr EVERY 8 HOURS IVPB 09/26/17 22:00 10/01/17 21:59 09/29/17 06:23 Tamsulosin HCl (Flomax) 0.4 mg BEDTIME ORAL 09/27/17 21:00 10/27/17 20:59 Tramadol HCl (Ultram) 50 mg EVERY 8 HOURS PRN ORAL For Pain 09/26/17 23:30 10/03/17 23:29 Vancomycin HCl (Vanco rx to dose) 1 ea DAILY PRN MISC Per rx protocol 09/27/17 19:15 10/27/17 19:14 Vancomycin HCl 1 gm/Dextrose 275 ml @ 183.708 mls/hr Q24H IVPB 09/27/17 21:30 10/02/17 21:29 09/28/17 21:03 LEANNE DOLAN M.D. Sep 29, 2017 09:56
[2017-09-29] MEDS: Heparin 5000 units/ml inj SUBQ SCH ×2 (10:15→21:29)
[2017-09-29 12:00] VITALS: BP 133/69
--- NOTE | 2017-09-29 13:11 | Cardiology Report ---
APPROVED REPORT EXAM: Two-dimensional and M-mode echocardiogram with Doppler and color Doppler. INDICATION SOB M-Mode DIMENSIONS IVSd1.3 (0.7-1.1cm)Left Atrium (MM)3.5 (1.6-4.0cm) LVDd5.3 (3.5-5.6cm)Aortic Root3.7 (2.0-3.7cm) PWd1.5 (0.7-1.1cm)Aortic Cusp Exc.2.0 (1.5-2.0cm) IVSs1.4 cm LVDs3.8 (2.5-4.0cm) PWs2.9 cm Normal left ventricular chamber size. This study precludes analysis of LV wall motion. Left ventricular ejection fraction estimated to be 50- 55 %. No evidence of left ventricular hypertrophy. No evidence of pericardial effusion. Mild Left atrial enlargement. Right cardiac chamber sizes are within normal limits. Focal aortic valve sclerosis with adequate cusp excursion. Thickened mitral valve leaflets with normal excursion. Mitral annulus and aortic root calcification. Normal pulmonic valve structure. Normal tricuspid valve structure. Subcostal views are not well visualized. A color flow and spectral Doppler study was performed and revealed: Tarce to mild aortic regurgitation. Trace mitral regurgitation. Mitral diastolic velocities suggest reduced left ventricular relaxation c/w mild LV diastolic dysfunction (Grade I ) Mild tricuspid regurgitation. Tricuspid systolic velocities suggests peak right ventricular systolic pressure of 35 mmHg No Pulmonic regurgitation present.
--- NOTE | 2017-09-29 15:25 | Internal Med Progress Note ---
Subjective Physician Name Dre Forbes Attending Physician Dre Forbes MD Current Medications Medications (Trade) Dose Ordered Sig/Terrence Route PRN Reason Start Time Stop Time Status Last Admin Dose Admin Albuterol/ Ipratropium (Albuterol/ Ipratropium) 3 ml Q4H PRN HHN Shortness of Breath 09/26/17 17:15 10/01/17 17:14 Albuterol/ Ipratropium (Albuterol/ Ipratropium) 3 ml Q6HRT HHN 09/28/17 13:00 10/03/17 12:59 09/29/17 13:18 Atorvastatin Calcium (Lipitor) 10 mg BEDTIME ORAL 09/27/17 21:00 10/27/17 20:59 Bisacodyl (Dulcolax) 10 mg PRN PRN RECTAL Constipation 09/26/17 23:30 10/26/17 23:29 Carvedilol (Coreg) 3.125 mg TWICE A DAY ORAL 09/27/17 09:00 10/27/17 08:59 09/27/17 09:16 Clopidogrel Bisulfate (Plavix) 75 mg DAILY ORAL 09/27/17 09:00 10/27/17 08:59 09/27/17 09:16 Dextrose (Dextrose 50%) STAT PRN IV Hypoglycemia 09/26/17 23:30 10/26/17 23:29 Donepezil HCl (Aricept) 5 mg DAILY ORAL 09/27/17 09:00 10/27/17 08:59 09/27/17 09:16 Folic Acid (Folate) 1 mg DAILY ORAL 09/27/17 09:00 10/27/17 08:59 09/27/17 09:16 Heparin Sodium (Porcine) (Heparin 5000 units/ml) 5,000 units EVERY 12 HOURS SUBQ 09/26/17 21:00 10/26/17 20:59 09/29/17 10:15 Insulin Aspart (NovoLOG) BEFORE MEALS AND HS SUBQ 09/27/17 06:30 10/27/17 06:29 Latanoprost (Xalatan) 1 drop BEDTIME BOTH EYES 09/27/17 21:00 10/27/17 20:59 09/28/17 21:03 Magnesium Hydroxide (Mom) 30 ml DAILY ORAL 09/27/17 09:00 10/27/17 08:59 09/27/17 09:25 Methylprednisolone Sodium Succinate (Solu-MEDROL) 30 mg EVERY 12 HOURS IVP 09/29/17 21:00 10/29/17 20:59 Mirtazapine (Remeron) 7.5 mg BEDTIME ORAL 09/27/17 21:00 10/27/17 20:59 Piperacillin Sod/ Tazobactam Sod 3.375 gm/Dextrose 55 ml @ 13.75 mls/ hr EVERY 8 HOURS IVPB 09/26/17 22:00 10/01/17 21:59 09/29/17 06:23 Tamsulosin HCl (Flomax) 0.4 mg BEDTIME ORAL 09/27/17 21:00 10/27/17 20:59 Tramadol HCl (Ultram) 50 mg EVERY 8 HOURS PRN ORAL For Pain 09/26/17 23:30 10/03/17 23:29 Vancomycin HCl (Vanco rx to dose) 1 ea DAILY PRN MISC Per rx protocol 09/27/17 19:15 10/27/17 19:14 Vancomycin HCl 1 gm/Dextrose 275 ml @ 183.708 mls/hr Q24H IVPB 09/27/17 21:30 10/02/17 21:29 09/28/17 21:03 Allergies: Coded Allergies: No Known Allergies (Verified , 05/23/07) Subjective awake, alert, responsive, open eyes, talking, NAD Objective Last Vital Signs Date Time Temp Pulse Resp B/P (MAP) Pulse Ox O2 Delivery O2 Flow Rate FiO2 09/29/17 13:28 89 18 95 Nasal Cannula 4.0 36 09/29/17 12:00 97.3 133/69 Laboratory Tests Test 09/29/17 03:30 White Blood Count 9.8 K/UL (4.8-10.8) Red Blood Count 5.09 M/UL (4.70-6.10) Hemoglobin 13.9 G/DL (14.2-18.0) L Hematocrit 43.5 % (42.0-52.0) Mean Corpuscular Volume 86 FL (80-99) Mean Corpuscular Hemoglobin 27.4 PG (27.0-31.0) Mean Corpuscular Hemoglobin Concent 32.0 G/DL (32.0-36.0) Red Cell Distribution Width 14.2 % (11.6-14.8) Platelet Count 223 K/UL (150-450) Mean Platelet Volume 7.9 FL (6.5-10.1) Neutrophils (%) (Auto) % (45.0-75.0) Lymphocytes (%) (Auto) % (20.0-45.0) Monocytes (%) (Auto) % (1.0-10.0) Eosinophils (%) (Auto) % (0.0-3.0) Basophils (%) (Auto) % (0.0-2.0) Sodium Level 144 MMOL/L (136-145) Potassium Level 3.5 MMOL/L (3.5-5.1) Chloride Level 110 MMOL/L (98-107) H Carbon Dioxide Level 23 MMOL/L (21-32) Anion Gap 11 mmol/L (5-15) Blood Urea Nitrogen 36 mg/dL (7-18) H Creatinine 1.1 MG/DL (0.55-1.30) Estimat Glomerular Filtration Rate mL/min (>60) Glucose Level 111 MG/DL (74-106) H Calcium Level 8.5 MG/DL (8.5-10.1) Phosphorus Level 2.9 MG/DL (2.5-4.9) Magnesium Level 2.3 MG/DL (1.8-2.4) Intake and Output 09/28/17 09/29/17 19:00 07:00 Intake Total 96.25 ml 330.000 ml Output Total 350 ml 200 ml Balance -253.75 ml 130.000 ml Intake IV Total 96.25 ml 330.000 ml Output Urine Total 350 ml 200 ml # Bowel Movements 1 Objective General: awake , responsive, alert. HEENT: NCAT, sclera anicteric, PERRL, EOMI. right eye opacification. Neck: Supple, no significant jugular venous distention, Lungs: decrease air on base, Not Coarse breath sound. No wheezes. Heart: Regular rate and rhythm, normal S1/S2, no murmurs, PPM @ LCW. Abdomen: soft, nontender, nondistended. Normoactive bowel sounds. Extremities: No Cyanosis , clubbing or edema. Neuro: A&O x 3, Able to move all extremities Skin: warm, no rashes or lesions Assessment/Plan Assessment/Plan PROBLEM LIST: 1. Acute hypoxemic respiratory failure, likely secondary to exacerbation of his underlying interstitial lung disease and chronic obstructive pulmonary disease in the setting of recent respiratory infection. 2. Underlying interstitial lung disease (not typical usual interstitial pneumonia-like pattern, questionable chronic hypersensitivity pneumonitis versus nonspecific interstitial pneumonia). 3. Leukocytosis and lactic acidosis. 4. Healthcare-associated pneumonia. 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 6. Chronic obstructive pulmonary disease. 7. Coronary artery disease, status post coronary artery bypass graft and percutaneous coronary intervention. 8. Congestive heart failure. 9. Paroxysmal atrial fibrillation, status post pacemaker. 10. Prior deep venous thrombosis, no longer on anticoagulation. 11. History of cerebrovascular accident. 12. Hypertension. 13. Chronic kidney disease. 14. KLEBSIELLA PNEUMONIAE UTI. TREATMENT PLAN: Optimize pulmonary hygiene/mobilize as tolerated. [id number] and p.r.n. bronchodilators. Solu-Medrol 30 IV b.i.d., Abx: Zosyn and Vanco IV Follow up sputum culture and respiratory panel. Aspiration precautions DVT prophylaxis with heparin subcutaneous. Full code. PT Mobility, OOB to chair CT of Chest: Impression: Dense consolidation of most the right lower lobe, less extensive dense consolidation of portions of the left lower lobe. Nonspecific but likely representing infiltrates secondary to pneumonia. Pulmonary edema also a possibility Markedly elevated right hemidiaphragm. This accounts for much of the basilar opacity seen on recent chest radiograph Interstitial septal thickening and pulmonary parenchymal groundglass opacity. This is nonspecific with a large differential. However, presence of subpleural honeycombing suggests a likely component of chronic interstitial fibrosis. Dilated right main pulmonary artery, consistent with pulmonary arterial hypertension Cardiomegaly Small pericardial effusion Ectatic but not quite aneurysmal ascending thoracic aorta Postsurgical changes described, including pacemaker, evidence of prior median sternotomy Cholelithiasis Colonic diverticulosis Incidental findings of are multiple bilateral renal cysts, degenerative spondylosis Dre Forbes MD Sep 29, 2017 15:25
[2017-09-29 16:00] VITALS: BP 126/74
[2017-09-29] MEDS: Donepezil 5mg Tab ORAL SCH (16:06)
--- NOTE | 2017-09-29 16:43 | Infectious Diseases Prog Note ---
Assessment/Plan Assessment/Plan ASSESSMENT AND PLAN: 1. klebsiella uti, enterobacter pna/gram neg pna/aspiration risk, gram + bacteremia, ? sbe, sepsis, leukocytosis, fevers - vancomycin and zosyn - TTE without vegetations - check lab, bc, chest x-ray - clinically better, fevers and leukocytosis better - d/w Dr. Forbes 2. Chronic obstructive pulmonary disease. Continue steroids and pulmonary treatment. 3. Interstitial lung disease. 4. Deep venous thrombosis. 5. Coronary artery disease. 6. Coronary artery bypass graft. 7. Paroxysmal atrial fibrillation. 8. Cerebrovascular accident. 9. High aspiration risk. 10. Hyperlipidemia. 11. Anxiety. 12. Depression. 13. Pacemaker. 14. History of smoking in the past. 15. Alzheimer. 16. Dementia. 17. Family history noncontributory. 18. Allergies negative. 19. MAR was noted. 20. Case was discussed with RN. 21. Notes and records were reviewed. 22. Continue treatment per the primary consultants. Subjective Constitutional: Reports: fatigue, other - more alert , Denies: fever HEENT: Reports: congestion - less congestion Respiratory: Reports: shortness of breath - less sob Cardiovascular: Denies: chest pain Gastrointestinal/Abdominal: Denies: nausea, vomiting, diarrhea Genitourinary: Reports: other - + kyle Neurologic: Denies: headache Psychiatric: Denies: depression Skin: Denies: rash Hematologic: Denies: bleeding Musculoskeletal: Denies: pain Allergies: Coded Allergies: No Known Allergies (Verified , 05/23/07) Objective Vital Signs Last 24 Hour Vital Signs Date Time Temp Pulse Resp B/P (MAP) Pulse Ox O2 Delivery O2 Flow Rate FiO2 09/29/17 16:06 89 133/69 09/29/17 13:28 89 18 95 Nasal Cannula 4.0 36 09/29/17 13:18 87 20 93 Nasal Cannula 4.0 36 09/29/17 12:00 97.3 68 22 133/69 94 Nasal Cannula 6.0 09/29/17 11:05 78 09/29/17 08:00 75 09/29/17 08:00 97.3 85 22 134/74 94 Nasal Cannula 6.0 09/29/17 07:13 61 20 94 Nasal Cannula 4.0 36 09/29/17 07:03 Nasal Cannula 5.0 40 09/29/17 07:03 61 18 91 Nasal Cannula 5.0 40 09/29/17 07:03 91 Nasal Cannula 5.0 40 09/29/17 04:00 97.0 85 20 130/76 94 Nasal Cannula 6.0 09/29/17 04:00 79 09/29/17 01:20 61 18 95 Nasal Cannula 5.0 40 09/29/17 01:10 60 18 91 Nasal Cannula 5.0 40 09/29/17 00:00 63 09/29/17 00:00 97.7 60 20 117/74 95 Nasal Cannula 6.0 09/28/17 20:00 20 93 Nasal Cannula 6.0 09/28/17 20:00 70 09/28/17 20:00 97.7 70 20 100/62 94 Nasal Cannula 6.0 09/28/17 19:26 70 18 91 Nasal Cannula 5.0 40 09/28/17 19:15 Nasal Cannula 5.0 40 09/28/17 19:15 71 18 90 Nasal Cannula 5.0 40 09/28/17 19:15 90 Nasal Cannula 5.0 40 Height (Feet): 5 Height (Inches): 3.00 Weight (Pounds): 160 General Appearance: no acute distress HEENT: normocephalic, atraumatic, anicteric, mucous membranes moist, EOMI, pharynx normal, supple, no JVD Respiratory/Chest: crackles/rales, rhonchi - bilaterally Cardiovascular: normal rate, regular rhythm, no gallop/murmur, no JVD Abdomen: normal bowel sounds, soft, non tender, no organomegaly, non distended Genitourinary: other - + kyle Extremities: no cyanosis Skin: no rash Neurologic/Psychiatric: alert, responsive Lymphatic: no neck adenopathy Musculoskeletal: no effusion Objective CT chest: Impression: Dense consolidation of most the right lower lobe, less extensive dense consolidation of portions of the left lower lobe. Nonspecific but likely representing infiltrates secondary to pneumonia. Pulmonary edema also a possibility Markedly elevated right hemidiaphragm. This accounts for much of the basilar opacity seen on recent chest radiograph Interstitial septal thickening and pulmonary parenchymal groundglass opacity. This is nonspecific with a large differential. However, presence of subpleural honeycombing suggests a likely component of chronic interstitial fibrosis. Dilated right main pulmonary artery, consistent with pulmonary arterial hypertension Cardiomegaly Small pericardial effusion Ectatic but not quite aneurysmal ascending thoracic aorta Postsurgical changes described, including pacemaker, evidence of prior median sternotomy Cholelithiasis Colonic diverticulosis Incidental findings of are multiple bilateral renal cysts, degenerative spondylosis 09/27 - chest x-ray - Impression: Right basilar atelectasis, infiltrate, and likely pleural fluid Generalized interstitial congestion Smaller left pleural effusion Microbiology Date/Time Source Procedure Growth Status 09/26/17 11:25 Blood Blood Culture - Preliminary Gram Positive Cocci Resulted 09/26/17 11:25 Nasal Nares MRSA Culture - Final NO METHICILLIN RESISTANT STAPH AUREUS... Complete 09/26/17 11:25 Urine,Clean Catch Urine Culture - Final Klebsiella Pneumoniae Complete 09/26/17 11:25 Rectum VRE Culture - Final NO VANCOMYCIN RESISTANT ENTEROCOCCUS ... Complete Laboratory Tests Test 09/29/17 03:30 White Blood Count 9.8 K/UL (4.8-10.8) Red Blood Count 5.09 M/UL (4.70-6.10) Hemoglobin 13.9 G/DL (14.2-18.0) L Hematocrit 43.5 % (42.0-52.0) Mean Corpuscular Volume 86 FL (80-99) Mean Corpuscular Hemoglobin 27.4 PG (27.0-31.0) Mean Corpuscular Hemoglobin Concent 32.0 G/DL (32.0-36.0) Red Cell Distribution Width 14.2 % (11.6-14.8) Platelet Count 223 K/UL (150-450) Mean Platelet Volume 7.9 FL (6.5-10.1) Neutrophils (%) (Auto) % (45.0-75.0) Lymphocytes (%) (Auto) % (20.0-45.0) Monocytes (%) (Auto) % (1.0-10.0) Eosinophils (%) (Auto) % (0.0-3.0) Basophils (%) (Auto) % (0.0-2.0) Sodium Level 144 MMOL/L (136-145) Potassium Level 3.5 MMOL/L (3.5-5.1) Chloride Level 110 MMOL/L (98-107) H Carbon Dioxide Level 23 MMOL/L (21-32) Anion Gap 11 mmol/L (5-15) Blood Urea Nitrogen 36 mg/dL (7-18) H Creatinine 1.1 MG/DL (0.55-1.30) Estimat Glomerular Filtration Rate mL/min (>60) Glucose Level 111 MG/DL (74-106) H Calcium Level 8.5 MG/DL (8.5-10.1) Phosphorus Level 2.9 MG/DL (2.5-4.9) Magnesium Level 2.3 MG/DL (1.8-2.4) Current Medications Medications (Trade) Dose Ordered Sig/Terrence Route PRN Reason Start Time Stop Time Status Last Admin Dose Admin Albuterol/ Ipratropium (Albuterol/ Ipratropium) 3 ml Q4H PRN HHN Shortness of Breath 09/26/17 17:15 10/01/17 17:14 Albuterol/ Ipratropium (Albuterol/ Ipratropium) 3 ml Q6HRT HHN 09/28/17 13:00 10/03/17 12:59 09/29/17 13:18 Atorvastatin Calcium (Lipitor) 10 mg BEDTIME ORAL 09/27/17 21:00 10/27/17 20:59 Bisacodyl (Dulcolax) 10 mg PRN PRN RECTAL Constipation 09/26/17 23:30 10/26/17 23:29 Carvedilol (Coreg) 3.125 mg TWICE A DAY ORAL 09/27/17 09:00 10/27/17 08:59 09/29/17 16:06 Clopidogrel Bisulfate (Plavix) 75 mg DAILY ORAL 09/27/17 09:00 10/27/17 08:59 09/29/17 16:06 Dextrose (Dextrose 50%) STAT PRN IV Hypoglycemia 09/26/17 23:30 10/26/17 23:29 Donepezil HCl (Aricept) 5 mg DAILY ORAL 09/27/17 09:00 10/27/17 08:59 09/29/17 16:06 Folic Acid (Folate) 1 mg DAILY ORAL 09/27/17 09:00 10/27/17 08:59 09/29/17 16:06 Heparin Sodium (Porcine) (Heparin 5000 units/ml) 5,000 units EVERY 12 HOURS SUBQ 09/26/17 21:00 10/26/17 20:59 09/29/17 10:15 Insulin Aspart (NovoLOG) BEFORE MEALS AND HS SUBQ 09/27/17 06:30 10/27/17 06:29 Latanoprost (Xalatan) 1 drop BEDTIME BOTH EYES 09/27/17 21:00 10/27/17 20:59 09/28/17 21:03 Magnesium Hydroxide (Mom) 30 ml DAILY ORAL 09/27/17 09:00 10/27/17 08:59 09/27/17 09:25 Methylprednisolone Sodium Succinate (Solu-MEDROL) 30 mg EVERY 12 HOURS IVP 09/29/17 21:00 10/29/17 20:59 Mirtazapine (Remeron) 7.5 mg BEDTIME ORAL 09/27/17 21:00 10/27/17 20:59 Piperacillin Sod/ Tazobactam Sod 3.375 gm/Dextrose 55 ml @ 13.75 mls/ hr EVERY 8 HOURS IVPB 09/26/17 22:00 10/01/17 21:59 09/29/17 16:07 Tamsulosin HCl (Flomax) 0.4 mg BEDTIME ORAL 09/27/17 21:00 10/27/17 20:59 Tramadol HCl (Ultram) 50 mg EVERY 8 HOURS PRN ORAL For Pain 09/26/17 23:30 10/03/17 23:29 Vancomycin HCl (Vanco rx to dose) 1 ea DAILY PRN MISC Per rx protocol 09/27/17 19:15 10/27/17 19:14 Vancomycin HCl 1 gm/Dextrose 275 ml @ 183.708 mls/hr Q24H IVPB 09/27/17 21:30 10/02/17 21:29 09/28/17 21:03 PARVEEN MITCHELL Sep 29, 2017 16:43
--- NOTE | 2017-09-29 18:04 | Diagnostic Imaging Report ---
Indication: Infection Technique: XRAY Chest 1v Comparison: 191 Findings: Low lung volumes. Heart size and mediastinal contours appear stable. There is persistent interstitial and bilateral airspace opacities. These findings are without significant interval change from the prior exam. Pacemaker unchanged in position. No acute osseous abnormality appreciated. Impression: No significant interval change in appearance of the heart and lungs compared to prior exam.
[2017-09-29 20:00] VITALS: BP 102/60
[2017-09-29] MEDS: Latanoprost 0.005% Opth 2.5ml Soln BOTH EYES SCH (21:25)
[2017-09-29] MEDS: Tamsulosin 0.4mg cap ORAL SCH (21:26)
[2017-09-29] MEDS: Solu-MEDROL 40mg Inj IVP SCH (21:26)
[2017-09-29] MEDS: Vancomycin 1gm in D5W 275ml IVPB SCH (21:30)
[2017-09-30] VITALS: BP 120/88
[2017-09-30] MEDS: Albuterol/Ipratropium 3ml neb HHN SCH ×4 (02:22→19:16)
[2017-09-30 04:00] VITALS: BP 146/75
[2017-09-30] MEDS: Piperacillin/Tazobactam 3.375 GM in D5W 55 ML IVPB SCH ×4 (06:14→22:35)
[2017-09-30] MEDS: NovoLOG Insulin Flexpen SUBQ SCH ×4 (06:15→20:54)
[2017-09-30 08:00] VITALS: BP 142/67
[2017-09-30] MEDS: Solu-MEDROL 40mg Inj IVP SCH ×2 (08:41→21:32)
[2017-09-30] MEDS: Donepezil 5mg Tab ORAL SCH (08:42)
[2017-09-30] MEDS: Milk of Magnesia 30ml Ud ORAL SCH (08:42)
[2017-09-30] MEDS: Heparin 5000 units/ml inj SUBQ SCH ×2 (08:48→21:36)
--- NOTE | 2017-09-30 11:10 | Pulmonology Progress Note ---
Assessment/Plan Problems: (1) COPD (chronic obstructive pulmonary disease) (2) Cardiomegaly (3) Pleural effusion (4) Low O2 saturation (5) Bacteremia (6) Viridans streptococci infection (7) UTI (urinary tract infection) Assessment/Plan ASSESSMENT: The patient is an 87-year-old [place] male with history of underlying interstitial lung disease, chronic obstructive pulmonary disease, coronary artery disease, status post coronary artery bypass graft, percutaneous coronary intervention, paroxysmal atrial fibrillation, status post pacemaker, congestive heart failure, prior deep venous thrombosis, no longer on anticoagulant, cerebrovascular accident, hypertension, and chronic kidney disease, presenting with shortness of breath, cough, and hypoxemia likely secondary to an exacerbation of his underlying obstructive lung disease or interstitial lung disease. There is no clear infiltrate on chest x-ray, but given his lactic acidosis and leukocytosis, it is reasonable to treat him for healthcare-associated organisms. PROBLEM LIST: 1. Acute hypoxemic respiratory failure, likely secondary to exacerbation of his underlying interstitial lung disease and chronic obstructive pulmonary disease in the setting of recent respiratory infection. 2. Underlying interstitial lung disease (not typical usual interstitial pneumonia-like pattern, questionable chronic hypersensitivity pneumonitis versus nonspecific interstitial pneumonia). 3. Viridans strep + CoNS Bacteremia/sepsis 4. Healthcare-associated pneumonia. 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 6. Chronic obstructive pulmonary disease. 7. Coronary artery disease, status post coronary artery bypass graft and percutaneous coronary intervention. 8. Congestive heart failure. 9. Paroxysmal atrial fibrillation, status post pacemaker. 10. Prior deep venous thrombosis, no longer on anticoagulation. 11. History of cerebrovascular accident. 12. Hypertension. 13. Chronic kidney disease. 14. Klebsiella UTI TREATMENT PLAN: 1. Optimize pulmonary hygiene/mobilize as tolerated. 2. [id number] and p.r.n. bronchodilators. 3. Continue Solu-Medrol 30 IV b.i.d., we will taper based on clinical response. 4. Abx per ID, F/U repeat BCx's 5. Monitor volumes, p.r.n. diuresis 6. Cardiology recs 7. Diet per [employer] with STRICT aspiration precautions 8. BiPAP to 12/5 nightly and p.r.n 9. Titrate down FiO2 to keep saturations greater than 90%. 10. DVT prophylaxis, heparin subcutaneous. 11. The patient is full code. Subjective Allergies: Coded Allergies: No Known Allergies (Verified , 05/23/07) Subjective AFVSS, O2 needs stable, less cough, + SOB, no F/C Objective Last 24 Hour Vital Signs Date Time Temp Pulse Resp B/P (MAP) Pulse Ox O2 Delivery O2 Flow Rate FiO2 09/30/17 09:58 22 88 Nasal Cannula 5.0 09/30/17 08:42 78 142/67 09/30/17 08:16 69 20 88 Nasal Cannula 6.0 44 09/30/17 08:08 87 20 93 Venturi Mask 8.0 45 09/30/17 08:00 90 09/30/17 08:00 97.7 78 22 142/67 84 Venturi Mask 10.0 45 09/30/17 08:00 6.0 09/30/17 07:28 Venturi Mask 10.0 45 09/30/17 07:28 91 Venturi Mask 10.0 45 09/30/17 04:00 98.0 66 21 146/75 96 Bi-pap 50 09/30/17 04:00 63 09/30/17 03:20 50 09/30/17 02:45 62 20 88 Nasal Cannula 6.0 44 09/30/17 02:25 44 09/30/17 02:21 62 20 88 Nasal Cannula 6.0 44 09/30/17 00:07 62 20 88 Nasal Cannula 6.0 44 09/30/17 00:00 100 09/30/17 00:00 97.4 99 20 120/88 96 Nasal Cannula 6.0 09/29/17 21:49 62 20 88 Nasal Cannula 6.0 44 09/29/17 21:48 Nasal Cannula 6.0 44 09/29/17 21:46 88 Nasal Cannula 6.0 44 09/29/17 20:00 97.6 62 20 102/60 96 Nasal Cannula 6.0 09/29/17 18:00 71 126/74 09/29/17 16:06 89 133/69 09/29/17 16:00 97.2 71 18 126/74 96 Nasal Cannula 6.0 09/29/17 16:00 69 09/29/17 13:28 89 18 95 Nasal Cannula 4.0 36 09/29/17 13:18 87 20 93 Nasal Cannula 4.0 36 09/29/17 12:00 97.3 68 22 133/69 94 Nasal Cannula 6.0 Intake and Output 09/29/17 09/30/17 19:00 07:00 Intake Total 100 ml 113.75 ml Output Total 300 ml 350 ml Balance -200 ml -236.25 ml Intake Oral 100 ml 100 ml IV Total 13.75 ml Output Urine Total 300 ml 350 ml # Voids 3 # Bowel Movements 1 General Appearance: no acute distress, cachetic, other - frail elderly HEENT: normocephalic, atraumatic, mucous membranes moist Respiratory/Chest: rhonchi Cardiovascular: normal peripheral pulses, normal rate, regular rhythm Abdomen: normal bowel sounds, soft, non tender, no organomegaly, non distended Extremities: no cyanosis, no clubbing, no edema Laboratory Tests 09/29/17 20:45: Random Vancomycin Level 12.6 Current Medications Medications (Trade) Dose Ordered Sig/Terrence Route PRN Reason Start Time Stop Time Status Last Admin Dose Admin Albuterol/ Ipratropium (Albuterol/ Ipratropium) 3 ml Q4H PRN HHN Shortness of Breath 09/26/17 17:15 10/01/17 17:14 Albuterol/ Ipratropium (Albuterol/ Ipratropium) 3 ml Q6HRT HHN 09/28/17 13:00 10/03/17 12:59 09/30/17 08:08 Atorvastatin Calcium (Lipitor) 10 mg BEDTIME ORAL 09/27/17 21:00 10/27/17 20:59 09/29/17 21:26 Bisacodyl (Dulcolax) 10 mg PRN PRN RECTAL Constipation 09/26/17 23:30 10/26/17 23:29 Carvedilol (Coreg) 3.125 mg TWICE A DAY ORAL 09/27/17 09:00 10/27/17 08:59 09/30/17 08:42 Clopidogrel Bisulfate (Plavix) 75 mg DAILY ORAL 09/27/17 09:00 10/27/17 08:59 09/30/17 08:42 Dextrose (Dextrose 50%) STAT PRN IV Hypoglycemia 09/26/17 23:30 10/26/17 23:29 Donepezil HCl (Aricept) 5 mg DAILY ORAL 09/27/17 09:00 10/27/17 08:59 09/30/17 08:42 Folic Acid (Folate) 1 mg DAILY ORAL 09/27/17 09:00 10/27/17 08:59 09/30/17 08:42 Heparin Sodium (Porcine) (Heparin 5000 units/ml) 5,000 units EVERY 12 HOURS SUBQ 09/26/17 21:00 10/26/17 20:59 09/30/17 08:48 Insulin Aspart (NovoLOG) BEFORE MEALS AND HS SUBQ 09/27/17 06:30 10/27/17 06:29 Latanoprost (Xalatan) 1 drop BEDTIME BOTH EYES 09/27/17 21:00 10/27/17 20:59 09/29/17 21:25 Magnesium Hydroxide (Mom) 30 ml DAILY ORAL 09/27/17 09:00 10/27/17 08:59 09/30/17 08:42 Methylprednisolone Sodium Succinate (Solu-MEDROL) 30 mg EVERY 12 HOURS IVP 09/29/17 21:00 10/29/17 20:59 09/30/17 08:41 Mirtazapine (Remeron) 7.5 mg BEDTIME ORAL 09/27/17 21:00 10/27/17 20:59 09/29/17 21:26 Piperacillin Sod/ Tazobactam Sod 3.375 gm/Dextrose 55 ml @ 13.75 mls/ hr EVERY 8 HOURS IVPB 09/29/17 23:00 10/04/17 22:59 09/30/17 06:15 Tamsulosin HCl (Flomax) 0.4 mg BEDTIME ORAL 09/27/17 21:00 10/27/17 20:59 09/29/17 21:26 Tramadol HCl (Ultram) 50 mg EVERY 8 HOURS PRN ORAL For Pain 09/26/17 23:30 10/03/17 23:29 Vancomycin HCl (Vanco rx to dose) 1 ea DAILY PRN MISC Per rx protocol 09/27/17 19:15 10/27/17 19:14 Vancomycin HCl 1 gm/Dextrose 275 ml @ 183.708 mls/hr Q24H IVPB 09/27/17 21:30 10/02/17 21:29 09/29/17 21:30 LEANNE DOLAN M.D. Sep 30, 2017 11:10
[2017-09-30 12:00] VITALS: BP 136/96
[2017-09-30 16:00] VITALS: BP 135/88
[2017-09-30] MEDS ORDERED: Albuterol/Ipratropium 3ml neb HHN PRN (17:15)
[2017-09-30 20:00] VITALS: BP 135/64
[2017-09-30] MEDS ORDERED: Latanoprost 0.005% Opth 2.5ml Soln BOTH EYES SCH (21:00)
[2017-09-30] MEDS ORDERED: Tamsulosin 0.4mg cap ORAL SCH (21:00)
[2017-09-30] MEDS ORDERED: Vancomycin 1 GM in D5W 275 ML IVPB SCH (21:30)
[2017-09-30] MEDS ORDERED: traMADol 50mg tab ORAL PRN (22:00)
--- NOTE | 2017-09-30 23:23 | Internal Med Progress Note ---
Subjective Physician Name Dre Forbes Attending Physician Dre Forbes MD Current Medications Medications (Trade) Dose Ordered Sig/Terrence Route PRN Reason Start Time Stop Time Status Last Admin Dose Admin Albuterol/ Ipratropium (Albuterol/ Ipratropium) 3 ml Q4H PRN HHN Shortness of Breath 09/30/17 17:15 10/01/17 17:14 Albuterol/ Ipratropium (Albuterol/ Ipratropium) 3 ml Q6HRT HHN 09/30/17 19:00 10/03/17 12:59 09/30/17 19:16 Atorvastatin Calcium (Lipitor) 10 mg BEDTIME ORAL 09/30/17 21:00 10/27/17 20:59 09/30/17 21:32 Bisacodyl (Dulcolax) 10 mg PRN PRN RECTAL Constipation 09/30/17 23:30 10/26/17 23:29 Carvedilol (Coreg) 3.125 mg TWICE A DAY ORAL 09/30/17 18:00 10/27/17 08:59 09/30/17 17:43 Clopidogrel Bisulfate (Plavix) 75 mg DAILY ORAL 10/01/17 09:00 10/27/17 08:59 Dextrose (Dextrose 50%) STAT PRN IV Hypoglycemia 09/30/17 23:30 10/26/17 23:29 Donepezil HCl (Aricept) 5 mg DAILY ORAL 10/01/17 09:00 10/27/17 08:59 Folic Acid (Folate) 1 mg DAILY ORAL 10/01/17 09:00 10/27/17 08:59 Heparin Sodium (Porcine) (Heparin 5000 units/ml) 5,000 units EVERY 12 HOURS SUBQ 09/30/17 21:00 10/26/17 20:59 09/30/17 21:36 Insulin Aspart (NovoLOG) BEFORE MEALS AND HS SUBQ 09/30/17 16:30 10/27/17 06:29 09/30/17 16:41 Latanoprost (Xalatan) 1 drop BEDTIME BOTH EYES 09/30/17 21:00 10/27/17 20:59 Magnesium Hydroxide (Mom) 30 ml DAILY ORAL 10/01/17 09:00 10/27/17 08:59 Methylprednisolone Sodium Succinate (Solu-MEDROL) 30 mg EVERY 12 HOURS IVP 09/30/17 21:00 10/29/17 20:59 09/30/17 21:32 Mirtazapine (Remeron) 7.5 mg BEDTIME ORAL 09/30/17 21:00 10/27/17 20:59 09/30/17 21:32 Piperacillin Sod/ Tazobactam Sod 3.375 gm/Dextrose 55 ml @ 13.75 mls/ hr EVERY 8 HOURS IVPB 09/30/17 22:00 10/04/17 22:59 09/30/17 22:35 Tamsulosin HCl (Flomax) 0.4 mg BEDTIME ORAL 09/30/17 21:00 10/27/17 20:59 09/30/17 21:32 Tramadol HCl (Ultram) 50 mg Q8H PRN ORAL For Pain 09/30/17 22:00 10/07/17 21:59 Vancomycin HCl (Vanco rx to dose) 1 ea DAILY PRN MISC Per rx protocol 10/01/17 09:00 10/27/17 19:14 Vancomycin HCl 1 gm/Dextrose 275 ml @ 183.708 mls/hr Q24H IVPB 09/30/17 21:30 10/02/17 21:29 09/30/17 21:41 Allergies: Coded Allergies: No Known Allergies (Verified , 05/23/07) Subjective awake, alert, responsive, open eyes, talking, NAD, feeling better Objective Last Vital Signs Date Time Temp Pulse Resp B/P (MAP) Pulse Ox O2 Delivery O2 Flow Rate FiO2 09/30/17 20:00 95 Nasal Cannula 5.0 09/30/17 20:00 97.5 73 20 135/64 09/30/17 19:31 40 Microbiology Date/Time Source Procedure Growth Status 09/29/17 10:35 Blood Blood Culture - Preliminary NO GROWTH AFTER 24 HOURS Resulted 09/29/17 10:25 Blood Blood Culture - Preliminary NO GROWTH AFTER 24 HOURS Resulted Intake and Output 09/29/17 09/30/17 19:00 07:00 Intake Total 100 ml 113.75 ml Output Total 300 ml 350 ml Balance -200 ml -236.25 ml Intake Oral 100 ml 100 ml IV Total 13.75 ml Output Urine Total 300 ml 350 ml # Voids 3 # Bowel Movements 1 Objective General: awake , responsive, alert. HEENT: NCAT, sclera anicteric, PERRL, EOMI. right eye opacification. Neck: Supple, no significant jugular venous distention, Lungs: decrease air on base, Not Coarse breath sound. No wheezes. Heart: Regular rate and rhythm, normal S1/S2, no murmurs, PPM @ [facility]. Abdomen: soft, nontender, nondistended. Normoactive bowel sounds. Extremities: No Cyanosis , clubbing or edema. Neuro: A&O x 3, Able to move all extremities Skin: warm, no rashes or lesions Assessment/Plan Assessment/Plan PROBLEM LIST: 1. Acute hypoxemic respiratory failure, likely secondary to exacerbation of his underlying interstitial lung disease and chronic obstructive pulmonary disease in the setting of recent respiratory infection. 2. Underlying interstitial lung disease (not typical usual interstitial pneumonia-like pattern, questionable chronic hypersensitivity pneumonitis versus nonspecific interstitial pneumonia). 3. Leukocytosis and lactic acidosis. 4. Healthcare-associated pneumonia. 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 6. Chronic obstructive pulmonary disease. 7. Coronary artery disease, status post coronary artery bypass graft and percutaneous coronary intervention. 8. Congestive heart failure. 9. Paroxysmal atrial fibrillation, status post pacemaker. 10. Prior deep venous thrombosis, no longer on anticoagulation. 11. History of cerebrovascular accident. 12. Hypertension. 13. Chronic kidney disease. 14. KLEBSIELLA PNEUMONIAE UTI. TREATMENT PLAN: Optimize pulmonary hygiene/mobilize as tolerated. [id number] and p.r.n. bronchodilators. Solu-Medrol 30 IV b.i.d., Abx: Zosyn and Vanco IV Follow up sputum culture and respiratory panel. Aspiration precautions DVT prophylaxis with heparin subcutaneous. Full code. PT Mobility, OOB to chair DC Planning to SNF in [address] of Chest: Impression: Dense consolidation of most the right lower lobe, less extensive dense consolidation of portions of the left lower lobe. Nonspecific but likely representing infiltrates secondary to pneumonia. Pulmonary edema also a possibility Markedly elevated right hemidiaphragm. This accounts for much of the basilar opacity seen on recent chest radiograph Interstitial septal thickening and pulmonary parenchymal groundglass opacity. This is nonspecific with a large differential. However, presence of subpleural honeycombing suggests a likely component of chronic interstitial fibrosis. Dilated right main pulmonary artery, consistent with pulmonary arterial hypertension Cardiomegaly Small pericardial effusion Ectatic but not quite aneurysmal ascending thoracic aorta Postsurgical changes described, including pacemaker, evidence of prior median sternotomy Cholelithiasis Colonic diverticulosis Incidental findings of are multiple bilateral renal cysts, degenerative spondylosis Dre Forbes MD Sep 30, 2017 23:23
[2017-10-01] VITALS: BP 120/80
[2017-10-01] MEDS: Albuterol/Ipratropium 3ml neb HHN SCH ×4 (01:08→18:58)
[2017-10-01] MEDS: NovoLOG Insulin Flexpen SUBQ SCH ×3 (06:30→16:22)
[2017-10-01] MEDS: Piperacillin/Tazobactam 3.375 GM in D5W 55 ML IVPB SCH ×2 (06:34→14:00)
[2017-10-01 08:06] LABS: BASOPHILS % (AUTO) 0.5 % (0.0-2.0); LYMPHOCYTES % (AUTO) 12.8 % (20.0-45.0); MEAN CORPUSCULAR HEMOGLOBIN 27.6 PG (27.0-31.0); MEAN CORPUSCULAR HGB CONC 32.6 G/DL (32.0-36.0); MEAN CORPUSCULAR VOLUME 85 FL (80-99); MEAN PLATELET VOLUME 8.1 FL (6.5-10.1); MONOCYTES % (AUTO) 6.5 % (1.0-10.0); NEUTROPHILS % (AUTO) 80.2 % (45.0-75.0); PLATELET COUNT 215 K/UL (150-450); RED CELL DISTRIBUTION WIDTH 13.8 % (11.6-14.8); WHITE BLOOD COUNT 9.1 K/UL (4.8-10.8)
[2017-10-01 08:21] LABS: MAGNESIUM 2.3 MG/DL (1.8-2.4); PHOSPHORUS 2.3 MG/DL (2.5-4.9)
[2017-10-01 08:24] LABS: ANION GAP 9 mmol/L (5-15); CALCIUM 8.8 MG/DL (8.5-10.1); CARBON DIOXIDE 24 MMOL/L (21-32); CHLORIDE 107 MMOL/L (98-107); SODIUM 140 MMOL/L (136-145)
[2017-10-01] MEDS ORDERED: Milk of Magnesia 30ml Ud ORAL SCH (09:00)
[2017-10-01] MEDS ORDERED: Donepezil 5mg Tab ORAL SCH (09:00)
[2017-10-01] MEDS: Solu-MEDROL 40mg Inj IVP SCH (09:23)
[2017-10-01] MEDS: Heparin 5000 units/ml inj SUBQ SCH (09:25)
--- NOTE | 2017-10-01 09:47 | Diagnostic Imaging Report ---
Indication: Infection Technique: XRAY Chest 1v Comparison: 09/29/2017 Findings: Limited exam with patient rotated to the right and low lung volumes. Heart size and mediastinal contours are stable. Pacemaker unchanged in position. There is persistent interstitial edema with patchy bibasilar atelectasis/consolidation, possibly worse on the left however obscured by the pacemaker. There is no definite pneumothorax. Osseous structures are stable. Impression: Limited exam. Persistent interstitial opacification/edema and patchy bibasilar atelectasis/consolidation.
[2017-10-01 09:53] VITALS: BP 133/64
[2017-10-01] MEDS ORDERED: Tubing IV Secondary IV ONE (10:47)
[2017-10-01] MEDS ORDERED: NS 275ml ONE (10:47)
[2017-10-01 11:57] VITALS: BP 125/76
--- NOTE | 2017-10-01 14:19 | Infectious Diseases Prog Note ---
Assessment/Plan Assessment/Plan ASSESSMENT AND PLAN: 1. 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 sbe, sepsis, leukocytosis, fevers - vancomycin and zosyn - day # 4 abx - TTE without vegetations - check lab, bc, chest x-ray - clinically better, fevers and leukocytosis better - surveillance blood cultures negative 2. Chronic obstructive pulmonary disease. Continue steroids and pulmonary treatment. 3. Interstitial lung disease. 4. Deep venous thrombosis. 5. Coronary artery disease. 6. Coronary artery bypass graft. 7. Paroxysmal atrial fibrillation. 8. Cerebrovascular accident. 9. High aspiration risk. 10. Hyperlipidemia. 11. Anxiety. 12. Depression. 13. Pacemaker. 14. History of smoking in the past. 15. Alzheimer. 16. Dementia. 17. Family history noncontributory. 18. Allergies negative. 19. MAR was noted. 20. Case was discussed with RN. 21. Notes and records were reviewed. 22. Continue treatment per the primary consultants. Subjective Constitutional: Reports: other - more alert , Denies: fever HEENT: Reports: congestion - less Respiratory: Reports: shortness of breath - less Cardiovascular: Denies: chest pain Gastrointestinal/Abdominal: Denies: nausea, vomiting, diarrhea Genitourinary: Reports: other - + kyle Neurologic: Denies: headache Psychiatric: Denies: depression Skin: Denies: rash Hematologic: Denies: bleeding Musculoskeletal: Denies: pain Allergies: Coded Allergies: No Known Allergies (Verified , 05/23/07) Objective Vital Signs Last 24 Hour Vital Signs Date Time Temp Pulse Resp B/P (MAP) Pulse Ox O2 Delivery O2 Flow Rate FiO2 10/01/17 13:45 96 20 91 Nasal Cannula 5.0 40 10/01/17 13:40 40 10/01/17 13:38 92 89 Nasal Cannula 5.0 40 10/01/17 11:57 97.2 67 20 125/76 98 Nasal Cannula 5.0 10/01/17 11:53 74 10/01/17 09:53 97.2 65 20 133/64 94 Nasal Cannula 5.0 10/01/17 09:24 65 133/64 10/01/17 08:05 69 20 94 Nasal Cannula 5.0 40 10/01/17 08:02 Nasal Cannula 5.0 40 10/01/17 08:02 40 10/01/17 08:02 93 Nasal Cannula 5.0 40 10/01/17 07:53 60 93 Nasal Cannula 5.0 40 10/01/17 07:50 66 10/01/17 04:00 5.0 10/01/17 03:58 90 10/01/17 03:49 88 Nasal Cannula 5.0 10/01/17 01:24 5.0 50 10/01/17 01:13 65 20 88 Nasal Cannula 5.0 40 10/01/17 01:10 40 10/01/17 01:08 63 20 88 Nasal Cannula 5.0 40 10/01/17 00:25 64 20 93 Facial 50 10/01/17 00:01 66 10/01/17 00:00 97.0 65 20 120/80 96 10/01/17 00:00 91 Nasal Cannula 5.0 09/30/17 22:00 5.0 50 09/30/17 20:28 60 09/30/17 20:00 90 Nasal Cannula 5.0 09/30/17 20:00 97.5 73 20 135/64 95 09/30/17 19:31 88 18 92 Nasal Cannula 5.0 40 09/30/17 19:30 40 09/30/17 19:30 85 18 90 Nasal Cannula 5.0 40 09/30/17 19:15 90 Nasal Cannula 5.0 40 09/30/17 19:15 Nasal Cannula 5.0 40 09/30/17 17:43 85 135/88 09/30/17 16:00 96.6 85 18 135/88 90 Nasal Cannula 5.0 09/30/17 16:00 70 09/30/17 14:16 73 20 93 Nasal Cannula 5.0 40 Height (Feet): 5 Height (Inches): 3.00 Weight (Pounds): 160 General Appearance: no acute distress HEENT: normocephalic, atraumatic, anicteric, mucous membranes moist Respiratory/Chest: no respiratory distress, no accessory muscle use, crackles/ rales, rhonchi - bilaterally Cardiovascular: normal rate, regular rhythm, no gallop/murmur, no JVD Abdomen: normal bowel sounds, soft, non tender, no organomegaly, non distended Genitourinary: other - + kyle - urine clearer Extremities: no cyanosis Skin: no rash 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 Nonspecific but likely representing infiltrates secondary to pneumonia. Pulmonary edema also a possibility Markedly elevated right hemidiaphragm. This accounts for much of the basilar opacity seen on recent chest radiograph Interstitial septal thickening and pulmonary parenchymal groundglass opacity. This is nonspecific with a large differential. However, presence of subpleural honeycombing suggests a likely component of chronic interstitial fibrosis. Dilated right main pulmonary artery, consistent with pulmonary arterial hypertension Cardiomegaly Small pericardial effusion Ectatic but not quite aneurysmal ascending thoracic aorta Postsurgical changes described, including pacemaker, evidence of prior median sternotomy Cholelithiasis Colonic diverticulosis Incidental findings of are multiple bilateral renal cysts, degenerative spondylosis 09/27 - chest x-ray - Impression: Right basilar atelectasis, infiltrate, and likely pleural fluid Generalized interstitial congestion Smaller left pleural effusion Chest x-ray - 10/01: Impression: Limited exam. Persistent interstitial opacification/edema and patchy bibasilar atelectasis/consolidation. Microbiology Date/Time Source Procedure Growth Status 09/29/17 10:35 Blood Blood Culture - Preliminary NO GROWTH AFTER 24 HOURS Resulted 09/26/17 11:25 Nasal Nares MRSA Culture - Final NO METHICILLIN RESISTANT STAPH AUREUS... Complete 09/26/17 11:25 Urine,Clean Catch Urine Culture - Final Klebsiella Pneumoniae Complete 09/26/17 11:25 Rectum VRE Culture - Final NO VANCOMYCIN RESISTANT ENTEROCOCCUS ... Complete Microbiology Date/Time Source Procedure Growth Status 09/29/17 10:35 Blood Blood Culture - Preliminary NO GROWTH AFTER 24 HOURS Resulted 09/29/17 10:25 Blood Blood Culture - Preliminary NO GROWTH AFTER 24 HOURS Resulted Laboratory Tests Test 10/01/17 07:27 White Blood Count 9.1 K/UL (4.8-10.8) Red Blood Count 5.60 M/UL (4.70-6.10) Hemoglobin 15.5 G/DL (14.2-18.0) Hematocrit 47.4 % (42.0-52.0) Mean Corpuscular Volume 85 FL (80-99) Mean Corpuscular Hemoglobin 27.6 PG (27.0-31.0) Mean Corpuscular Hemoglobin Concent 32.6 G/DL (32.0-36.0) Red Cell Distribution Width 13.8 % (11.6-14.8) Platelet Count 215 K/UL (150-450) Mean Platelet Volume 8.1 FL (6.5-10.1) Neutrophils (%) (Auto) 80.2 % (45.0-75.0) H Lymphocytes (%) (Auto) 12.8 % (20.0-45.0) L Monocytes (%) (Auto) 6.5 % (1.0-10.0) Eosinophils (%) (Auto) 0.0 % (0.0-3.0) Basophils (%) (Auto) 0.5 % (0.0-2.0) Sodium Level 140 MMOL/L (136-145) Potassium Level 4.0 MMOL/L (3.5-5.1) Chloride Level 107 MMOL/L (98-107) Carbon Dioxide Level 24 MMOL/L (21-32) Anion Gap 9 mmol/L (5-15) Blood Urea Nitrogen 23 mg/dL (7-18) H Creatinine 1.0 MG/DL (0.55-1.30) Estimat Glomerular Filtration Rate mL/min (>60) Glucose Level 110 MG/DL (74-106) H Calcium Level 8.8 MG/DL (8.5-10.1) Phosphorus Level 2.3 MG/DL (2.5-4.9) L Magnesium Level 2.3 MG/DL (1.8-2.4) Current Medications Medications (Trade) Dose Ordered Sig/Terrence Route PRN Reason Start Time Stop Time Status Last Admin Dose Admin Albuterol/ Ipratropium (Albuterol/ Ipratropium) 3 ml Q4H PRN HHN Shortness of Breath 09/30/17 17:15 10/01/17 17:14 Albuterol/ Ipratropium (Albuterol/ Ipratropium) 3 ml Q6HRT HHN 09/30/17 19:00 10/03/17 12:59 10/01/17 13:38 Atorvastatin Calcium (Lipitor) 10 mg BEDTIME ORAL 09/30/17 21:00 10/27/17 20:59 09/30/17 21:32 Bisacodyl (Dulcolax) 10 mg PRN PRN RECTAL Constipation 09/30/17 23:30 10/26/17 23:29 Carvedilol (Coreg) 3.125 mg TWICE A DAY ORAL 09/30/17 18:00 10/27/17 08:59 10/01/17 09:24 Clopidogrel Bisulfate (Plavix) 75 mg DAILY ORAL 10/01/17 09:00 10/27/17 08:59 10/01/17 09:24 Dextrose (Dextrose 50%) STAT PRN IV Hypoglycemia 09/30/17 23:30 10/26/17 23:29 Donepezil HCl (Aricept) 5 mg DAILY ORAL 10/01/17 09:00 10/27/17 08:59 10/01/17 09:23 Folic Acid (Folate) 1 mg DAILY ORAL 10/01/17 09:00 10/27/17 08:59 10/01/17 09:24 Heparin Sodium (Porcine) (Heparin 5000 units/ml) 5,000 units EVERY 12 HOURS SUBQ 09/30/17 21:00 10/26/17 20:59 10/01/17 09:25 Insulin Aspart (NovoLOG) BEFORE MEALS AND HS SUBQ 09/30/17 16:30 10/27/17 06:29 10/01/17 11:44 Latanoprost (Xalatan) 1 drop BEDTIME BOTH EYES 09/30/17 21:00 10/27/17 20:59 Magnesium Hydroxide (Mom) 30 ml DAILY ORAL 10/01/17 09:00 10/27/17 08:59 10/01/17 09:24 Methylprednisolone Sodium Succinate (Solu-MEDROL) 30 mg EVERY 12 HOURS IVP 09/30/17 21:00 10/29/17 20:59 10/01/17 09:23 Mirtazapine (Remeron) 7.5 mg BEDTIME ORAL 09/30/17 21:00 10/27/17 20:59 09/30/17 21:32 Piperacillin Sod/ Tazobactam Sod 3.375 gm/Dextrose 55 ml @ 13.75 mls/ hr EVERY 8 HOURS IVPB 09/30/17 22:00 10/04/17 22:59 10/01/17 06:34 Tamsulosin HCl (Flomax) 0.4 mg BEDTIME ORAL 09/30/17 21:00 10/27/17 20:59 09/30/17 21:32 Tramadol HCl (Ultram) 50 mg Q8H PRN ORAL For Pain 09/30/17 22:00 10/07/17 21:59 Vancomycin HCl (Vanco rx to dose) 1 ea DAILY PRN MISC Per rx protocol 10/01/17 09:00 10/27/17 19:14 Vancomycin HCl 1 gm/Dextrose 275 ml @ 183.708 mls/hr Q24H IVPB 09/30/17 21:30 10/02/17 21:29 09/30/17 21:41 PARVEEN MITCHELL Oct 01, 2017 14:19
[2017-10-01] MEDS ORDERED: Piperacillin/Tazobactam 3.375 GM in D5W 55 ML IVPB SCH (14:30)
[2017-10-01] MEDS ORDERED: CEFTRIAXONE1 G2 IV (15:30)
[2017-10-01] MEDS ORDERED: FLAGYL500 MG ORAL (15:30)
--- NOTE | 2017-10-01 15:32 | Internal Med Progress Note ---
Subjective Physician Name Dre Forbes Attending Physician Dre Forbes MD Current Medications Medications (Trade) Dose Ordered Sig/Terrence Route PRN Reason Start Time Stop Time Status Last Admin Dose Admin Albuterol/ Ipratropium (Albuterol/ Ipratropium) 3 ml Q4H PRN HHN Shortness of Breath 09/30/17 17:15 10/01/17 17:14 Albuterol/ Ipratropium (Albuterol/ Ipratropium) 3 ml Q6HRT HHN 09/30/17 19:00 10/03/17 12:59 10/01/17 13:38 Atorvastatin Calcium (Lipitor) 10 mg BEDTIME ORAL 09/30/17 21:00 10/27/17 20:59 09/30/17 21:32 Bisacodyl (Dulcolax) 10 mg PRN PRN RECTAL Constipation 09/30/17 23:30 10/26/17 23:29 Carvedilol (Coreg) 3.125 mg TWICE A DAY ORAL 09/30/17 18:00 10/27/17 08:59 10/01/17 09:24 Ceftriaxone Sodium 1 gm/ Dextrose 50 ml @ 100 mls/hr Q24H IVPB 10/01/17 21:00 10/08/17 20:59 Clopidogrel Bisulfate (Plavix) 75 mg DAILY ORAL 10/01/17 09:00 10/27/17 08:59 10/01/17 09:24 Dextrose (Dextrose 50%) STAT PRN IV Hypoglycemia 09/30/17 23:30 10/26/17 23:29 Donepezil HCl (Aricept) 5 mg DAILY ORAL 10/01/17 09:00 10/27/17 08:59 10/01/17 09:23 Folic Acid (Folate) 1 mg DAILY ORAL 10/01/17 09:00 10/27/17 08:59 10/01/17 09:24 Heparin Sodium (Porcine) (Heparin 5000 units/ml) 5,000 units EVERY 12 HOURS SUBQ 09/30/17 21:00 10/26/17 20:59 10/01/17 09:25 Insulin Aspart (NovoLOG) BEFORE MEALS AND HS SUBQ 09/30/17 16:30 10/27/17 06:29 10/01/17 11:44 Latanoprost (Xalatan) 1 drop BEDTIME BOTH EYES 09/30/17 21:00 10/27/17 20:59 Magnesium Hydroxide (Mom) 30 ml DAILY ORAL 10/01/17 09:00 10/27/17 08:59 10/01/17 09:24 Methylprednisolone Sodium Succinate (Solu-MEDROL) 30 mg EVERY 12 HOURS IVP 09/30/17 21:00 10/29/17 20:59 10/01/17 09:23 Metronidazole (Flagyl) 500 mg EVERY 8 HOURS ORAL 10/01/17 22:00 10/08/17 21:59 Mirtazapine (Remeron) 7.5 mg BEDTIME ORAL 09/30/17 21:00 10/27/17 20:59 09/30/17 21:32 Tamsulosin HCl (Flomax) 0.4 mg BEDTIME ORAL 09/30/17 21:00 10/27/17 20:59 09/30/17 21:32 Tramadol HCl (Ultram) 50 mg Q8H PRN ORAL For Pain 09/30/17 22:00 10/07/17 21:59 Allergies: Coded Allergies: No Known Allergies (Verified , 05/23/07) Subjective awake, alert, responsive, open eyes, talking, NAD, feeling good Objective Last Vital Signs Date Time Temp Pulse Resp B/P (MAP) Pulse Ox O2 Delivery O2 Flow Rate FiO2 10/01/17 13:45 96 20 91 Nasal Cannula 5.0 40 10/01/17 11:57 97.2 125/76 Laboratory Tests Test 10/01/17 07:27 White Blood Count 9.1 K/UL (4.8-10.8) Red Blood Count 5.60 M/UL (4.70-6.10) Hemoglobin 15.5 G/DL (14.2-18.0) Hematocrit 47.4 % (42.0-52.0) Mean Corpuscular Volume 85 FL (80-99) Mean Corpuscular Hemoglobin 27.6 PG (27.0-31.0) Mean Corpuscular Hemoglobin Concent 32.6 G/DL (32.0-36.0) Red Cell Distribution Width 13.8 % (11.6-14.8) Platelet Count 215 K/UL (150-450) Mean Platelet Volume 8.1 FL (6.5-10.1) Neutrophils (%) (Auto) 80.2 % (45.0-75.0) H Lymphocytes (%) (Auto) 12.8 % (20.0-45.0) L Monocytes (%) (Auto) 6.5 % (1.0-10.0) Eosinophils (%) (Auto) 0.0 % (0.0-3.0) Basophils (%) (Auto) 0.5 % (0.0-2.0) Sodium Level 140 MMOL/L (136-145) Potassium Level 4.0 MMOL/L (3.5-5.1) Chloride Level 107 MMOL/L (98-107) Carbon Dioxide Level 24 MMOL/L (21-32) Anion Gap 9 mmol/L (5-15) Blood Urea Nitrogen 23 mg/dL (7-18) H Creatinine 1.0 MG/DL (0.55-1.30) Estimat Glomerular Filtration Rate mL/min (>60) Glucose Level 110 MG/DL (74-106) H Calcium Level 8.8 MG/DL (8.5-10.1) Phosphorus Level 2.3 MG/DL (2.5-4.9) L Magnesium Level 2.3 MG/DL (1.8-2.4) Microbiology Date/Time Source Procedure Growth Status 09/29/17 10:35 Blood Blood Culture - Preliminary NO GROWTH AFTER 24 HOURS Resulted 09/29/17 10:25 Blood Blood Culture - Preliminary NO GROWTH AFTER 24 HOURS Resulted Intake and Output 09/30/17 10/01/17 19:00 07:00 Intake Total 541.25 ml 422.416 ml Output Total 400 ml Balance 541.25 ml 22.416 ml Intake Oral 500 ml IV Total 41.25 ml 422.416 ml Output Urine Total 400 ml # Bowel Movements 1 1 Objective General: awake , responsive, alert. HEENT: NCAT, sclera anicteric, PERRL, EOMI. right eye opacification. Neck: Supple, no significant jugular venous distention, Lungs: decrease air on base, Not Coarse breath sound. No wheezes. Heart: Regular rate and rhythm, normal S1/S2, no murmurs, PPM @ LCW. Abdomen: soft, nontender, nondistended. Normoactive bowel sounds. Extremities: No Cyanosis , clubbing or edema. Neuro: A&O x 3, Able to move all extremities Skin: warm, no rashes or lesions Assessment/Plan Assessment/Plan PROBLEM LIST: 1. Acute hypoxemic respiratory failure, likely secondary to exacerbation of his underlying interstitial lung disease and chronic obstructive pulmonary disease in the setting of recent respiratory infection. 2. Underlying interstitial lung disease (not typical usual interstitial pneumonia-like pattern, questionable chronic hypersensitivity pneumonitis versus nonspecific interstitial pneumonia). 3. Leukocytosis and lactic acidosis. 4. Healthcare-associated pneumonia. 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 6. Chronic obstructive pulmonary disease. 7. Coronary artery disease, status post coronary artery bypass graft and percutaneous coronary intervention. 8. Congestive heart failure. 9. Paroxysmal atrial fibrillation, status post pacemaker. 10. Prior deep venous thrombosis, no longer on anticoagulation. 11. History of cerebrovascular accident. 12. Hypertension. 13. Chronic kidney disease. 14. KLEBSIELLA PNEUMONIAE UTI. 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 [id number] and p.r.n. bronchodilators. Solu-Medrol 30 IV b.i.d., Abx: Rocephin and Flagyl X 14 days Follow up sputum culture and respiratory panel. Aspiration precautions DVT prophylaxis with heparin subcutaneous. Full code. PT Mobility, OOB to chair DC Planning to SNF today CT of Chest: Impression: Dense consolidation of most the right lower lobe, less extensive dense consolidation of portions of the left lower lobe. Nonspecific but likely representing infiltrates secondary to pneumonia. Pulmonary edema also a possibility Markedly elevated right hemidiaphragm. This accounts for much of the basilar opacity seen on recent chest radiograph Interstitial septal thickening and pulmonary parenchymal groundglass opacity. This is nonspecific with a large differential. However, presence of subpleural honeycombing suggests a likely component of chronic interstitial fibrosis. Dilated right main pulmonary artery, consistent with pulmonary arterial hypertension Cardiomegaly Small pericardial effusion Ectatic but not quite aneurysmal ascending thoracic aorta Postsurgical changes described, including pacemaker, evidence of prior median sternotomy Cholelithiasis Colonic diverticulosis Incidental findings of are multiple bilateral renal cysts, degenerative spondylosis Dre Forbes MD Oct 01, 2017 15:32
--- NOTE | 2017-10-01 15:37 | Pulmonology Progress Note ---
Assessment/Plan Problems: (1) COPD (chronic obstructive pulmonary disease) (2) Cardiomegaly (3) Pleural effusion (4) Low O2 saturation (5) Bacteremia (6) Viridans streptococci infection (7) UTI (urinary tract infection) Assessment/Plan ASSESSMENT: The patient is an 87-year-old Lebanese male with history of underlying interstitial lung disease, chronic obstructive pulmonary disease, coronary artery disease, status post coronary artery bypass graft, percutaneous coronary intervention, paroxysmal atrial fibrillation, status post pacemaker, congestive heart failure, prior deep venous thrombosis, no longer on anticoagulant, cerebrovascular accident, hypertension, and chronic kidney disease, presenting with shortness of breath, cough, and hypoxemia likely secondary to an exacerbation of his underlying obstructive lung disease or interstitial lung disease. There is no clear infiltrate on chest x-ray, but given his lactic acidosis and leukocytosis, it is reasonable to treat him for healthcare-associated organisms. PROBLEM LIST: 1. Acute hypoxemic respiratory failure, likely secondary to exacerbation of his underlying interstitial lung disease and chronic obstructive pulmonary disease in the setting of recent respiratory infection. 2. Underlying interstitial lung disease (not typical usual interstitial pneumonia-like pattern, questionable chronic hypersensitivity pneumonitis versus nonspecific interstitial pneumonia). 3. Viridans strep + CoNS Bacteremia/sepsis 4. Healthcare-associated pneumonia. 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 6. Chronic obstructive pulmonary disease. 7. Coronary artery disease, status post coronary artery bypass graft and percutaneous coronary intervention. 8. Congestive heart failure. 9. Paroxysmal atrial fibrillation, status post pacemaker. 10. Prior deep venous thrombosis, no longer on anticoagulation. 11. History of cerebrovascular accident. 12. Hypertension. 13. Chronic kidney disease. 14. Klebsiella UTI TREATMENT PLAN: 1. Optimize pulmonary hygiene/mobilize as tolerated. 2. Vqqgr-nob-niljp and p.r.n. bronchodilators. 3. Decrease Solu-Medrol to 20 IV b.i.d., we will taper based on clinical response. 4. Abx per ID, F/U repeat BCx's 5. Monitor volumes, p.r.n. diuresis 6. Cardiology recs 7. Diet per CONTROL SUPERVISOR with STRICT aspiration precautions 8. BiPAP to 12/5 nightly and p.r.n 9. Titrate down FiO2 to keep saturations greater than 90%. 10. DVT prophylaxis, heparin subcutaneous. 11. The patient is full code. 12. Will need to follow infiltrates to resolution, repeat CXR in 2-3 weeks or earlier PRN Subjective Allergies: Coded Allergies: No Known Allergies (Verified , 05/23/07) Subjective AFVSS, O2 needs stable, less cough, less SOB, no F/C Repeat CXs NG Objective Last 24 Hour Vital Signs Date Time Temp Pulse Resp B/P (MAP) Pulse Ox O2 Delivery O2 Flow Rate FiO2 10/01/17 13:45 96 20 91 Nasal Cannula 5.0 40 10/01/17 13:40 40 10/01/17 13:38 92 89 Nasal Cannula 5.0 40 10/01/17 11:57 97.2 67 20 125/76 98 Nasal Cannula 5.0 10/01/17 11:53 74 10/01/17 09:53 97.2 65 20 133/64 94 Nasal Cannula 5.0 10/01/17 09:24 65 133/64 10/01/17 08:05 69 20 94 Nasal Cannula 5.0 40 10/01/17 08:02 Nasal Cannula 5.0 40 10/01/17 08:02 40 10/01/17 08:02 93 Nasal Cannula 5.0 40 10/01/17 07:53 60 93 Nasal Cannula 5.0 40 10/01/17 07:50 66 10/01/17 04:00 5.0 10/01/17 03:58 90 10/01/17 03:49 88 Nasal Cannula 5.0 10/01/17 01:24 5.0 50 10/01/17 01:13 65 20 88 Nasal Cannula 5.0 40 10/01/17 01:10 40 10/01/17 01:08 63 20 88 Nasal Cannula 5.0 40 10/01/17 00:25 64 20 93 Facial 50 10/01/17 00:01 66 10/01/17 00:00 97.0 65 20 120/80 96 10/01/17 00:00 91 Nasal Cannula 5.0 09/30/17 22:00 5.0 50 09/30/17 20:28 60 09/30/17 20:00 90 Nasal Cannula 5.0 09/30/17 20:00 97.5 73 20 135/64 95 09/30/17 19:31 88 18 92 Nasal Cannula 5.0 40 09/30/17 19:30 40 09/30/17 19:30 85 18 90 Nasal Cannula 5.0 40 09/30/17 19:15 90 Nasal Cannula 5.0 40 09/30/17 19:15 Nasal Cannula 5.0 40 09/30/17 17:43 85 135/88 09/30/17 16:00 96.6 85 18 135/88 90 Nasal Cannula 5.0 09/30/17 16:00 70 Intake and Output 09/30/17 10/01/17 19:00 07:00 Intake Total 541.25 ml 422.416 ml Output Total 400 ml Balance 541.25 ml 22.416 ml Intake Oral 500 ml IV Total 41.25 ml 422.416 ml Output Urine Total 400 ml # Bowel Movements 1 1 General Appearance: no acute distress, cachetic HEENT: normocephalic, atraumatic, mucous membranes moist Respiratory/Chest: rhonchi - scattered Cardiovascular: normal peripheral pulses, normal rate, regular rhythm Abdomen: normal bowel sounds, soft, non tender, no organomegaly, non distended Extremities: no cyanosis, no clubbing, no edema Microbiology Date/Time Source Procedure Growth Status 09/29/17 10:35 Blood Blood Culture - Preliminary NO GROWTH AFTER 24 HOURS Resulted 09/29/17 10:25 Blood Blood Culture - Preliminary NO GROWTH AFTER 24 HOURS Resulted Laboratory Tests 10/01/17 07:27: White Blood Count 9.1, Red Blood Count 5.60, Hemoglobin 15.5, Hematocrit 47.4, Mean Corpuscular Volume 85, Mean Corpuscular Hemoglobin 27.6, Mean Corpuscular Hemoglobin Concent 32.6, Red Cell Distribution Width 13.8, Platelet Count 215, Mean Platelet Volume 8.1, Neutrophils (%) (Auto) 80.2H, Lymphocytes (%) (Auto) 12.8L, Monocytes (%) (Auto) 6.5, Eosinophils (%) (Auto) 0.0, Basophils (%) (Auto ) 0.5, Sodium Level 140, Potassium Level 4.0, Chloride Level 107, Carbon Dioxide Level 24, Anion Gap 9, Blood Urea Nitrogen 23H, Creatinine 1.0, Estimat Glomerular Filtration Rate , Glucose Level 110H, Calcium Level 8.8, Phosphorus Level 2.3L, Magnesium Level 2.3 Current Medications Medications (Trade) Dose Ordered Sig/Terrence Route PRN Reason Start Time Stop Time Status Last Admin Dose Admin Albuterol/ Ipratropium (Albuterol/ Ipratropium) 3 ml Q4H PRN HHN Shortness of Breath 09/30/17 17:15 10/01/17 17:14 Albuterol/ Ipratropium (Albuterol/ Ipratropium) 3 ml Q6HRT HHN 09/30/17 19:00 10/03/17 12:59 10/01/17 13:38 Atorvastatin Calcium (Lipitor) 10 mg BEDTIME ORAL 09/30/17 21:00 10/27/17 20:59 09/30/17 21:32 Bisacodyl (Dulcolax) 10 mg PRN PRN RECTAL Constipation 09/30/17 23:30 10/26/17 23:29 Carvedilol (Coreg) 3.125 mg TWICE A DAY ORAL 09/30/17 18:00 10/27/17 08:59 10/01/17 09:24 Ceftriaxone Sodium 1 gm/ Dextrose 50 ml @ 100 mls/hr Q24H IVPB 10/01/17 21:00 10/08/17 20:59 Clopidogrel Bisulfate (Plavix) 75 mg DAILY ORAL 10/01/17 09:00 10/27/17 08:59 10/01/17 09:24 Dextrose (Dextrose 50%) STAT PRN IV Hypoglycemia 09/30/17 23:30 10/26/17 23:29 Donepezil HCl (Aricept) 5 mg DAILY ORAL 10/01/17 09:00 10/27/17 08:59 10/01/17 09:23 Folic Acid (Folate) 1 mg DAILY ORAL 10/01/17 09:00 10/27/17 08:59 10/01/17 09:24 Heparin Sodium (Porcine) (Heparin 5000 units/ml) 5,000 units EVERY 12 HOURS SUBQ 09/30/17 21:00 10/26/17 20:59 10/01/17 09:25 Insulin Aspart (NovoLOG) BEFORE MEALS AND HS SUBQ 09/30/17 16:30 10/27/17 06:29 10/01/17 11:44 Latanoprost (Xalatan) 1 drop BEDTIME BOTH EYES 09/30/17 21:00 10/27/17 20:59 Magnesium Hydroxide (Mom) 30 ml DAILY ORAL 10/01/17 09:00 10/27/17 08:59 10/01/17 09:24 Methylprednisolone Sodium Succinate (Solu-MEDROL) 30 mg EVERY 12 HOURS IVP 09/30/17 21:00 10/29/17 20:59 10/01/17 09:23 Metronidazole (Flagyl) 500 mg EVERY 8 HOURS ORAL 10/01/17 22:00 10/08/17 21:59 Mirtazapine (Remeron) 7.5 mg BEDTIME ORAL 09/30/17 21:00 10/27/17 20:59 09/30/17 21:32 Tamsulosin HCl (Flomax) 0.4 mg BEDTIME ORAL 09/30/17 21:00 10/27/17 20:59 09/30/17 21:32 Tramadol HCl (Ultram) 50 mg Q8H PRN ORAL For Pain 09/30/17 22:00 10/07/17 21:59 LEANNE DOLAN M.D. Oct 01, 2017 15:37
[2017-10-01 15:56] LABS: INFLUENZA VIRUS A IGM ANTIBODY 1:16 (Neg:<1:8); INFLUENZA VIRUS B IGM ANTIBODY 1:16 (Neg:<1:8)
[2017-10-01 16:52] VITALS: BP 127/79
[2017-10-01 18:13] VITALS: BP 127/79
[2017-10-01] MEDS ORDERED: cefTRIAXone 1 GM in D5W 50 ML IVPB SCH (21:00)
[2017-10-01] MEDS ORDERED: Solu-MEDROL 40mg Inj IVP SCH (21:00)
[2017-10-01] MEDS ORDERED: Vancomycin 1 GM in D5W 275 ML IVPB SCH (21:30)
[2017-10-01] MEDS ORDERED: metroNIDAZOLE 500mg tab ORAL SCH (22:00)
--- NOTE | 2017-10-05 00:01 | Diagnostic Imaging Report ---
APPROVED REPORT CPT Code: 56607 Present Symptoms Shortness of breath BILATERAL: Imaging reveals a patent deep venous system bilaterally. There is no evidence of thrombus within the femoral, popliteal or tibial segments. The greater saphenous veins are also within normal limits. Doppler indicates normal spontaneous flow within these segments.
--- NOTE | 2017-10-05 14:04 | Discharge Summary ---
Discharge Summary Hospital Course Date of Admission Sep 26, 2017 at 11:50 Date of Discharge Oct 01, 2017 at 19:32 Admitting Diagnosis COPD EXACEBRATION HPI Lurdes Pal is a 87 year old male who was admitted on Sep 26, 2017 at 11:50 for Chronic Obstructive Pulmonary Disease Exacerbation Hospital Course dc summary #[id number] Discharge Medications New Medications: Ceftriaxone Sodium (Ceftriaxone) 1 Gm Vial.port 1 GM IV DAILY for 14 Days, VIAL Metronidazole* (Flagyl*) 500 Mg Tablet 500 MG ORAL EVERY 8 HOURS for 14 Days, TAB Continued Medications: Alendronate Sodium* (Fosamax*) 70 Mg Tablet 70 MG ORAL ONCE A WEEK, TAB Atorvastatin Calcium* (Lipitor*) 10 Mg Tablet 10 MG ORAL BEDTIME, TAB Bisacodyl (Dulcolax) 10 Mg Supp.rect 10 MG RC, SUPP Carvedilol* (Carvedilol*) 3.125 Mg Tablet 3.125 MG ORAL TWICE A DAY, TAB Clopidogrel Bisulfate* (Plavix*) 75 Mg Tablet 75 MG ORAL DAILY, TAB Donepezil Hcl* (Aricept*) 5 Mg Tablet 5 MG ORAL DAILY, TAB Famotidine (Pepcid) 20 Mg Tablet 20 MG ORAL DAILY, #7 TAB 0 Refills Fesoterodine Fumarate (Toviaz) 4 Mg Tab.er.24h 4 MG PO DAILY, TAB Folic Acid* (Folic Acid*) 1 Mg Tablet 1 MG ORAL DAILY, TAB Latanoprost* (Xalatan*) 2.5 Ml Drops 1 DROP BOTH EYES BEDTIME, ML 0 Refills Magnesium Hydroxide* (Milk Of Magnesia*) 400 Mg/5 Ml Oral.susp 30 ML ORAL DAILY, ML Magnesium Oxide (Magnesium Oxide) 500 Mg Capsule 400 MG PO DAILY, CAP Mirtazapine* (Remeron*) 15 Mg Tablet 7.5 MG ORAL BEDTIME, TAB Multivitamin With Minerals (Multivitamins With Minerals*) 1 Each Tablet 1 TAB ORAL DAILY, TAB Prednisone* (Prednisone*) 2.5 Mg Tablet 5 MG ORAL DAILY, #10 TAB 0 Refills Tamsulosin Hcl (Tamsulosin Hcl*) 0.4 Mg Cap.er.24h 0.4 MG ORAL BEDTIME, CAP Tramadol Hcl* (Ultram*) 50 Mg Tablet 50 MG ORAL EVERY 8 HOURS PRN for For Pain, #30 TAB 0 Refills Discontinued Medications: Atorvastatin Calcium* (Lipitor*) 10 Mg Tablet 10 MG ORAL BEDTIME, TAB Fesoterodine Fumarate (Toviaz) 4 Mg Tab.er.24h 4 MG PO DAILY, TAB Prednisolone* (Prelone*) 15 Mg/5 Ml Solution 10 MG ORAL, ML Discharge Condition Upon Discharge: stable Discharge Disposition Patient was discharged to SNF/Subacute Facility(03) Discharge Diagnoses: Discharge Instructions Discharge Instructions Special Instructions I have been assigned to complete a D/C Summary on this account. I was not involved in the patient management Janie Gannon NP ([facility]) Oct 05, 2017 14:04
--- NOTE | 2017-10-05 17:05 | Diagnostic Imaging Report ---
Indications: Reason For Exam: DYSPHAGIA Technique: Patient ingested multiple substances under the supervision of speech pathology. Video fluoroscopic recording performed. Total fluoroscopy time 190 seconds. Total dose area product 0.41865 mGycm2 Comparison: none Findings: Trace penetration of thin liquid barium is seen with sequential swallows through a straw. No aspiration is demonstrated. With other substances, prompt initiation of deglutition, minimal early pooling in the vallecula, no significant delayed pooling. No aspiration or penetration. Impression: Positive for minimal penetration of thin liquid barium. Negative for aspiration Please refer to speech pathology report for more detailed analysis
--- NOTE | 2017-10-06 00:15 | Discharge Summary 2 SIG ---
DATE OF ADMISSION: 09/26/2017 DATE OF DISCHARGE: 10/01/2017 REASON FOR ADMISSION: 87-year-old male with history of hypertension, CHF, atrial fibrillation and COPD pac[facility] due to hypoxemia and shortness of breath. Upon evaluation in the emergency room, vital signs were stable. However, the patient was hypoxemic. The patient required placement initially on 100% nonrebreathing mask. The patient was lethargic and wheezing. Lactate was above 2. Troponin was negative. WBC -15.9. Chest x-ray revealed right lower lobe infiltrate, cardiomegaly, and pacemaker. EKG revealed normal sinus rhythm, no acute ischemic changes. Electrolytes, hemoglobin and hematocrit were stable. ABG revealed significant hypoxemia. The patient was placed on BiPAP and transferred to ICU for further management with diagnoses of sepsis, pneumonia, COPD, and acute hypoxemic respiratory failure. HOSPITAL COURSE: Pulmonology, ID and cardiology consults were requested. The patient initially was in the ICU. The patient was started on IV fluids. Antibiotic started and further optimized as per ID direction . Sputum culture revealed Enterobacter species and Enterobacter aerogenes. Blood culture revealed high grade strep viridans and 2/4 staph coagulase- negative. Urine culture revealed Klebsiella pneumoniae. Repeated blood cultures were negative. Initial chest x-ray showed right basilar atelectasis and infiltrate. CT of the chest demonstrated evidence of interstitial lung disease and dense consolidation of the most of the right lower lobe. Venous duplex of bilateral lower extremities was negative. Followup chest x-ray did not show significant improvement. However, the patient was clinically improving. Leukocytosis and fevers resolved. ID directed the course of antibiotics. Per ID, the patient will need to continue ceftriaxone and Flagyl for additional 14 days due to the bacteremia. Pulmonary Disease Specialist closely followed the patient for initial acute hypoxemic respiratory failure. Initial acute hypoxemic respiratory failure was likely secondary to exacerbation of underlying interstitial lung disease and COPD in the setting of pneumonia. His underlying interstitial lung disease per transferrer was not typical usual interstitial pneumonia. It was likely chronic hypersensitivity pneumonitis versus nonspecific interstitial pneumonia. Supplemental oxygen was gradually titrated to keep saturation above 92%. The patient was able to be weaned from BiPAP and nonrebreathing mask to oxygen via nasal cannula. Pulmonary toilet provided around the clock and as needed with bronchodilator therapy. The patient was on IV steroids, which were gradually tapered and changed to oral prior to discharge. BiPAP order was on standby at night and as needed. Echocardiogram revealed preserved ejection fraction of 50% to 55%, right ventricular systolic pressure of 35. No evidence of left ventricular hypertrophy, no evidence of vegetation. Asphalt Spreader closely followed the patient. Per ecommerce marketing manager, dyspnea was likely secondary to pneumonia. Pacemaker recommended to be interrogated as an outpatient. Blood pressure was managed with current antihypertensive regimen and was stable. The patient had a history of paroxysmal atrial fibrillation but was in sinus rhythm. The patient was not on any anticoagulation. Asphalt Spreader recommended due to high CHADS/VASC score due to age, hypertension and history of coronary artery disease start anticoagulation therapy. The patient was on statin. Statin was continued along with Plavix and beta- favio. GI prophylaxis provided. Volumes were closely monitored. Diuresis provided as needed. Diet was provided as per speech therapist recommendation with strict aspiration/reflux precaution. DVT prophylaxis with heparin was provided. The patient will need to have a chest x-ray in SNF in two to three weeks to ensure resolution of pneumonia. FINAL DIAGNOSES: 1. Acute hypoxemic respiratory failure. 2. Underlying interstitial lung disease: possibly chronic hypersensitivity pneumonitis versus nonspecific interstitial pneumonia. 3. Sepsis with bacteremia, Streptococcus viridans and Staphylococcus coagulase- negative. 4. Healthcare-associated pneumonia with Enterobacter. 5. Urinary tract infection with Klebsiella. 6. Chronic obstructive pulmonary disease with exacerbation. 7. 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 8. Congestive heart failure. 9. Paroxysmal atrial fibrillation. 10 Status post pacemaker. 10. History of deep vein thrombosis, off anticoagulation at present. 11. History of cerebrovascular accident. 12. Hypertension. 13. Chronic kidney disease. DISCHARGE MEDICATIONS: See medication reconciliation list. DISCHARGE INSTRUCTIONS: [facility] FOLLOWUP: Followup with medical doctor at the facility. Dre Forbes M.D. I have been assigned to dictate discharge summary on this account and I was not involved in the patient's management. Janie [facility]annon ([facility]: KRYSTIAN JOB#: [id number] CC: [email or web address]
== END 2017-10-01 19:32 | DRG 871 ==
LOC: EDBD 10:50 → EMR 11:10 → EDBEDREQ 11:41 → 2W 11:50 → EDBEDREQ 13:20 → EDBEDREQSVC 13:20 → EDBEDREQ 13:29 → 2W 09-27 08:45 → 2E 09-30 14:18
DX: A41.9 Sepsis, unspecified organism (principal); J96.01 Acute respiratory failure with hypoxia; J15.6 Pneumonia due to other Gram-negative bacteria; J84.9 Interstitial pulmonary disease, unspecified; I50.9 Heart failure, unspecified; G30.9 Alzheimer's disease, unspecified; N39.0 Urinary tract infection, site not specified; I48.0 Paroxysmal atrial fibrillation; F02.80 Dementia in other diseases classified elsewhere, unspecified severity, without behavioral disturbance, psychotic disturbance, mood disturbance, and anxiety; N18.9 Chronic kidney disease, unspecified; M81.0 Age-related osteoporosis without current pathological fracture; I25.10 Atherosclerotic heart disease of native coronary artery without angina pectoris; Z95.1 Presence of aortocoronary bypass graft; Z95.0 Presence of cardiac pacemaker; Z86.73 Personal history of transient ischemic attack (TIA), and cerebral infarction without residual deficits; E78.5 Hyperlipidemia, unspecified; J44.9 Chronic obstructive pulmonary disease, unspecified; Z95.5 Presence of coronary angioplasty implant and graft; F41.9 Anxiety disorder, unspecified; F32.9 Major depressive disorder, single episode, unspecified; Z86.718 Personal history of other venous thrombosis and embolism; Z87.891 Personal history of nicotine dependence; I12.9 Hypertensive chronic kidney disease with stage 1 through stage 4 chronic kidney disease, or unspecified chronic kidney disease; B96.1 Klebsiella pneumoniae [K. pneumoniae] as the cause of diseases classified elsewhere; B95.4 Other streptococcus as the cause of diseases classified elsewhere; B95.7 Other staphylococcus as the cause of diseases classified elsewhere; B96.89 Other specified bacterial agents as the cause of diseases classified elsewhere
CPT/HCPCS: 36415; 36600; 71010; 71250; 74230; 80048; 80053; 80202; 81003; 82550; 82553; 82803; 82962; 83605; 83735; 83880; 84100; 84484; 85025; 86171; 86710; 87040; 87070; 87081; 87086; 87181; 87205; 90732; 93005; 93306; 93970; 94640; 94660; 94664; 94760; J1815; J7620